=== PATIENT | female | born 1935 | race Caucasian/White ===

== ENCOUNTER 2019-08-03 11:02 | Inpatient (IN) ==
[2019-08-03 11:21] LABS: ABG Base Excess -0.7 mmol/L (-2.4-2.3); ABG HCO3 23.5 mmhg (22.0-26.0); ABG Oxygen Saturation 90 % (90-100); ABG PCO2 35.9 mmhg (35.0-45.0); ABG PH 7.43 mmol/L (7.35-7.45); ABG PO2 59.7 mmhg (80-100); ABG TCO2 24.6 mmhg (23-27)
[2019-08-03 11:22] LABS: Allen's Test ACCEPTABLE; Oxygen 21 %
[2019-08-03 11:28] LABS: Microscopic, Urine URINE MICROSCOPIC (MICROSCOPIC)
[2019-08-03 11:31] LABS: Basophils # 0.1 K/mm3 (0-0.2); Basophils % 0.3 % (0.1-2.0); Eosinophils # 0.1 K/mm3 (0.0-0.4); Eosinophils % 0.4 % (0.1-12.0); Hematocrit 30.7 % (37.0-47.0); Hemoglobin 9.7 g/dL (12.2-16.2); Lymphocytes # 2.1 K/mm3 (0.7-4.5); Lymphocytes % 11.5 % (10-50); Mean Corpuscular HGB Conc 31.6 g/dL (31.8-35.4); Mean Corpuscular Volume 80.4 fl (81-99); Mean Platelet Volume 7.9 fl (7.4-10.4); Monocytes # 0.9 K/mm3 (0.1-1.0); Monocytes % 4.9 % (1.7-9.3); Neutrophils # 14.8 K/mm3 (1.8-7.8); Neutrophils % 82.9 % (37.0-80.0); Platelet Count 447 K/mm3 (142-424); Red Blood Count 3.82 M/mm3 (4.20-5.40); Red Cell Distribution Width 14.9 % (11.5-17.5); White Blood Count 17.8 K/mm3 (4.8-10.8)
[2019-08-03 11:31] LABS: Appearance,Urine TURBID (Clear); Bilirubin,Urine Negative (Negative); Blood, Urine 2+ (Negative); Color,Urine YELLOW (Yellow); Glucose,Urine (UA) Negative (Negative); Ketones,Urine Negative (Negative); Leukocyte Esterase,Urine 3+ (Negative); PH,Urine 5.5 (5.0-8.5); Protein,Urine 3+ (Negative); Specific Gravity, Urine >= 1.030 (1.005-1.030); Urobilinogen,Urine 0.2 EU/dl (0.2)
[2019-08-03 11:42] LABS: Anisocytosis 1+; Lymphocytes % 14 % (10-50); Monocytes % 2 % (2-9); Neutrophils % 73 % (42-76); Total Cells Counted 100
[2019-08-03 11:43] LABS: Hypochromasia 1+
[2019-08-03 11:47] LABS: Albumin Level 2.5 gm/dL (3.4-5.0); Albumin/Globulin Ratio 0.4 (1.1-1.8); Anion Gap 13.5 mEq/L (5-15); Bilirubin,Total 0.5 mg/dL (0.2-1.0); Calcium 8.6 mg/dL (8.5-10.1); Globulin 5.9 gm/dl (1.3-3.2); Total Protein,Serum 8.4 gm/dL (6.4-8.2)
[2019-08-03 11:49] LABS: WBC,Urine TNTC #/hpf (0-3)
[2019-08-03 11:50] LABS: Amorphous Sediment,Urine 4+ /lpf; Bacteria,Urine 4+ /lpf
--- NOTE | 2019-08-03 12:15 | Emergency Department Note ---
ED Disposition Clinical Impression: Acute lower UTI (urinary tract infection), Healthcare associated bacterial pneumonia, Acute kidney injury (nontraumatic) Bilateral pneumonia Qualifiers: Pneumonia type: due to unspecified organism Lung location: unspecified part of lung Qualified Code(s): J18.9 - Pneumonia, unspecified organism Sepsis Qualifiers: Sepsis type: sepsis due to unspecified organism Sepsis acute organ dysfunction status: unspecified Qualified Code(s): A41.9 - Sepsis, unspecified organism Disposition: Admitted as Observation Condition on Discharge: Fair Time of Disposition: 13:55 - Critical Care Critical Care Time: Yes Attestation: On 08/03/19, the high probability of a clinically significant, sudden or life threatening deterioration of the following system(s) required my full and direct attention, intervention and personal management. The time I documented below is in addition to time spent performing reported procedures but includes the following listed in this critical care notation. Total Critical Care Time: 30 Vital system(s) involved:: Metabolic Failure, Respiratory Failure, Shock (Septic) My critical care processes included: Assessment & monitoring of V/S, Initial and Re-exams, Data Review/Interpretation, Coordinating Care, Medication Orders and management, Documentation Medical Decision Making - Jason Inquiry Pt receiving controlled substance: No Vital Signs: 08/03/19 11:03 08/03/19 12:49 08/03/19 12:56 Temperature 103.1 F H 101.3 F H Temperature Source Oral Oral Pulse Rate Pulse Rate [Right Radial] 120 H 104 H Respiratory Rate 28 H Blood Pressure Blood Pressure [Right Arm] 126/67 113/57 L Blood Pressure Mean [Right Arm] 86 75 02 Sat by Pulse Oximetry 77 L 95 Oxygen Delivery Method Room Air 08/03/19 14:09 Temperature 99.9 F H Temperature Source Oral Pulse Rate 100 H Pulse Rate [Right Radial] Respiratory Rate 18 Blood Pressure 108/45 L Blood Pressure [Right Arm] Blood Pressure Mean [Right Arm] 02 Sat by Pulse Oximetry Oxygen Delivery Method Nasal Cannula - Lab Data Lab results reviewed: Yes: I reviewed the patient's lab results. Lab Results 08/03/19 11:11: Specimen Source Right brachial, O2 % 21, ABG pH 7.43, ABG pCO2 35.9, ABG pO2 59.7 L, ABG HCO3 23.5, ABG Total CO2 24.6, ABG O2 Saturation 90, ABG Base Excess -0.7, [place] Test Acceptable 08/03/19 11:17: WBC 17.8 H, RBC 3.82 L, Hgb 9.7 L, Hct 30.7 L, MCV 80.4 L, MCH 25.4 L, MCHC 31.6 L, RDW 14.9, Plt Count 447 H, MPV 7.9, Neut % (Auto) 82.9 H, Lymph % (Auto) 11.5, [place] % (Auto) 4.9, Eos % (Auto) 0.4, Baso % (Auto) 0.3, Neut # (Auto) 14.8 H, Lymph # (Auto) 2.1, [place] # (Auto) 0.9, Eos # (Auto) 0.1, Baso # (Auto) 0.1, Total Counted 100, Neutrophils % (Manual) 73, Band Neutrophils % 5.0, Lymphocytes % (Manual) 14, Monocytes % (Manual) 2, Metamyelocytes % 6.0 H, Platelet Estimate Moderate increase, Hypochromasia 1+, Poikilocytosis 1+, Anisocytosis 1+, Microcytosis 1+ 08/03/19 11:17: Sodium 123 L, Potassium 5.5 H, Chloride 88 L, Carbon Dioxide 27, Anion Gap 13.5, BUN 35 H, Creatinine 1.68 H, Estimated Creat Clear 33, Estimated GFR 29 L, Est GFR ( Amer) 35 L, Glucose 188 H, Calcium 8.6, Total Bilirubin 0.5, AST 18, ALT 14, Alkaline Phosphatase 109, Troponin I 0.04, Total Protein 8.4 H, Albumin 2.5 L, Globulin 5.9 H, Albumin/Globulin Ratio 0.4 L 08/03/19 11:17: Lactate 1.8 08/03/19 11:17: Influenza Type A Ag Negative, Influenza Type B Ag Negative 08/03/19 11:23: Urine Color Yellow, Urine Appearance Turbid, Urine pH 5.5, Ur Specific [place] >= 1.030, Urine Protein 3+, Urine Glucose (UA) Negative, Urine Ketones Negative, Urine Blood 2+, Urine Nitrate Positive, Urine Bilirubin Negative, Urine Urobilinogen 0.2, Ur Leukocyte Esterase 3+ A, Urine RBC 3-5, Urine WBC Tntc, Ur Squamous Epith Cells 10-20, Amorphous Sediment 4+, Urine Bacteria 4+ 08/03/19 14:10: B-Natriuretic Peptide 1180 H 08/03/19 14:10: Magnesium 1.3 L Result diagrams: 08/03/19 11:17 08/03/19 11:17 Orders (Tests/Meds): ED MEDICATIONS Generic Name Dose Route Start Last Admin Trade Name Freq PRN Reason Stop Dose Admin Acetaminophen 650 mg 08/03/19 13:51 Acetaminophen 325mg Tab PO 09/02/19 13:50 Q4HP PRN As Needed for Fever or Pain Atorvastatin Calcium 20 mg 08/03/19 13:51 08/03/19 15:49 Lipitor 20mg Tablet PO 09/02/19 13:50 20 mg DAILY EVARISTO Administration Enoxaparin Sodium 40 mg 08/03/19 13:51 08/03/19 15:48 Lovenox 40mg/0.4ml Syringe SQ 09/02/19 13:50 40 mg DAILY EVARISTO Administration Furosemide 80 mg 08/04/19 09:00 Lasix 80mg Tablet PO 09/03/19 08:59 DAILY EVARISTO Piperacillin Sod/Tazobactam 50 mls @ 100 mls/hr 08/03/19 15:30 08/03/19 20:51 Sod 3.375 gm/ Sodium Chloride IV 08/17/19 15:29 100 mls/hr Q6H EVARISTO Administration Protocol Levofloxacin/Dextrose 750 mg in 150 mls @ 100 mls/hr 08/05/19 14:00 Levofloxacin 750mg/150ml Premix IV 08/19/19 13:59 Q48H EVARISTO Protocol Sodium Chloride 1,000 mls @ 100 mls/hr 08/03/19 13:51 08/03/19 15:48 Sod Chlor 0.9% 1000ml Bag IV 09/02/19 13:50 100 mls/hr .Q10H EVARISTO Administration Ibuprofen 600 mg 08/03/19 14:09 Motrin 600mg Tablet PO 09/02/19 14:08 Q6HP PRN Mild Pain Levothyroxine Sodium 50 mcg 08/03/19 13:51 08/03/19 15:49 Synthroid 50mcg (0.05mg) Tablet PO 09/02/19 13:50 50 mcg DAILY EVARISTO Administration Ondansetron HCl 4 mg 08/03/19 13:51 Zofran 4mg/2ml Vial IV 09/02/19 13:50 Q8HP PRN Nausea Pregabalin 100 mg 08/04/19 09:00 Lyrica 100mg Capsule PO 09/03/19 08:59 DAILY EVARISTO Sodium Chloride 3 ml 08/03/19 13:51 08/03/19 15:42 Sodium Chloride 3% 15ml Neb IH 09/02/19 13:04 3 ml ONCE PRN Administration [employer] Sodium Chloride 10 ml 08/03/19 13:51 Saline Flush 10ml Syringe IV 09/02/19 13:50 NEEDED PRN Maintain IV Site Discontinued Medications Generic Name Dose Route Start Last Admin Trade Name Freq PRN Reason Stop Dose Admin Acetaminophen 1,000 mg 08/03/19 11:09 08/03/19 11:28 Tylenol 500mg Tablet PO 08/03/19 11:10 Not Given ONCE ONE Acetaminophen 650 mg 08/03/19 11:28 08/03/19 11:29 Acetaminophen 650mg Suppository RC 08/03/19 11:29 650 mg ONCE ONE Administration Furosemide 40 mg 08/03/19 13:51 08/03/19 15:49 Lasix 40mg/4ml Vial IV 08/03/19 13:52 40 mg ONCE ONE Administration Sodium Chloride 1,000 mls @ 999 mls/hr 08/03/19 11:30 08/03/19 11:30 Sod Chlor 0.9% 1000ml Bag IV 08/03/19 12:30 999 mls/hr .Q1H1M EVARISTO Administration Ceftriaxone Sodium 1 gm/ 50 mls @ 100 mls/hr 08/03/19 12:12 08/03/19 12:49 Sodium Chloride IV 08/03/19 12:41 100 mls/hr ONCE STA Administration Protocol Levofloxacin/Dextrose 750 mg in 150 mls @ 100 mls/hr 08/03/19 13:45 08/03/19 13:45 Levofloxacin 750mg/150ml Premix IV 08/17/19 13:44 100 mls/hr Q24H EVARISTO Administration Protocol Piperacillin Sod/Tazobactam 50 mls @ 100 mls/hr 08/03/19 13:45 08/03/19 17:29 Sod 3.375 gm/ Sodium Chloride IV 08/17/19 13:44 Not Given Q8H EVARISTO Protocol Piperacillin Sod/Tazobactam 50 mls @ 100 mls/hr 08/03/19 13:45 08/03/19 17:28 Sod 3.375 gm/ Sodium Chloride IV 08/03/19 14:14 Not Given ONCE ONE Protocol Ibuprofen 800 mg 08/03/19 12:56 08/03/19 12:57 Motrin 200mg/10ml Suspension PO 08/03/19 12:57 800 mg ONCE ONE Administration Sodium Chloride 3 ml 08/03/19 13:05 Sodium Chloride 3% 15ml Neb IH 09/02/19 13:04 ONCE PRN [employer] ORDERS Category Date Time Status Basic Metabolic Panel AMLAB Lab 08/04/19 06:00 Ordered Complete Blood Count Auto Diff AMLAB Lab 08/04/19 06:00 Ordered Troponin I Q6H Lab 08/03/19 22:45 Ordered Blood Culture Stat Micro 08/03/19 11:23 Received Sputum Culture & Gram Stain Stat Micro 08/03/19 16:00 Results Urine Culture Stat Micro 08/03/19 11:23 Received - ECG Data Tracing #[address]-T changes. Resp/SOB HPI - General Chief Complaint: Shortness of Breath/Dyspnea Stated Complaint: Shortness of Breath Time Seen by Provider: 08/03/19 11:10 Mode of Arrival: EMS Limitations: Physical Limitations Description of Symptoms (Recalled from ER Triage Doc. by RN): pt presents to ed with c/o fever, low o2 at the care home reported in the "60s," and shortness of breath - History of Present Illness 84-year-old female was brought in from the care home by the EMS for having s hortness of breath and not feeling well. Patient states she has not been feeling well for the last 2 to 3 days. Patient seems to be having shortness of breath. Her oxygen saturation is low. It was around 60% at the care home. Patient feels warm as if she is having fever. Denies having chest pain. Denies having abdominal pain. Denies having headache. No history of nausea or vomiting. MD Complaint: shortness of breath, cough, anxiety Onset (ago): day(s) (2-3) Context: recent illness Severity: moderate Consistency/Duration: constant Relieving factors: nothing Exacerbating factors: nothing - Related Data Home Medications Medication Instructions Recorded Confirmed Acetaminophen [Acetaminophen 325mg 650 mg PO Q8HP PRN 08/03/19 08/03/19 tab] Alendronate Sodium [Fosamax 70mg 70 mg PO WEEKLY 08/03/19 08/03/19 Tablet] Atorvastatin Calcium [Lipitor 20mg 20 mg PO DAILY 08/03/19 08/03/19 Tablet] Clopidogrel Bisulfate [Plavix 75mg 75 mg PO DAILY 08/03/19 08/03/19 Tab] Erythromycin Base [Erythromycin 0 gm OP HS 08/03/19 08/03/19 1gm opth ointment] Erythromycin Base [Erythromycin 1 applicatio TP HS 08/03/19 08/03/19 3.5gm opth oinment] Furosemide [Lasix 80mg tab] 80 mg PO DAILY 08/03/19 08/03/19 Levothyroxine Sodium [Synthroid 50 mcg PO DAILY 08/03/19 08/03/19 50mcg (0.05mg) tab] Multivitamin [Multi-Day Vitamins] 1 each PO DAILY 08/03/19 08/03/19 Multivitamin [Multivitamins] 1 each PO DAILY 08/03/19 08/03/19 Polymyxin B Sulf/Trimethoprim 0 ml OP TID 08/03/19 08/03/19 [Polytrim Ophth Soln 10mL Bottle] Polymyxin B Sulf/Trimethoprim 1 drp EYE-BOTH TID 08/03/19 08/03/19 [Polytrim Ophth Soln 10mL Bottle] Pregabalin 100 mg PO DAILY 08/03/19 08/03/19 Triamcinolone Acetonide [Kenalog 0 gm TOPICAL BID 08/03/19 08/03/19 0.1% cream 30gm tube] Triamcinolone Acetonide [Kenalog 1 applicatio TP BID 08/03/19 08/03/19 0.1% cream 30gm tube] Allergies Allergy/AdvReac Type Severity Reaction Status Date / Time No Known Allergies Allergy Verified 08/03/19 11:08 [facility] History - Hepatitis A Screen Drug use history?: No High risk sexual behaviors?: No History of sexually transmitted infection?: No Currently employed?: No Childcare worker?: No Do you have indoor plumbing?: Yes Do you have electricity?: Yes Attestation statement:: This patient has been screened for Hepatitis A risk factors. I have reviewed the patient's past medical history: Yes Medical History: Denies:: Diabetes Mellitus Type 1, Diabetes Mellitus Type 2 - Social History Alcohol Intake: never Occupational Status: retired ROS Obtained: Yes All systems reviewed & no additional complaints Physical Exam - General General appearance: alert, other (Looks weak and tired. She is tachypneic and breathing at about 28 to 30/min. She feels very warm to touch and has a temperature of 103 degrees.) - Head Head exam: atraumatic, normocephalic, normal inspection - Eye Eye exam: Present: normal appearance, PERRL, EOMI - ENT ENT exam: Present: normal exam, normal oropharynx, mucous membranes moist, normal external ear exam - Neck Neck exam: Present: normal inspection, full ROM, trachea midline - Chest Chest inspection: Present: normal inspection, symmetric chest wall rise. Absent: tenderness - Respiratory Respiratory exam: Present: other (Tachypnea, bilateral coarse breath sounds. I ncreased shortness of breath. Bilateral coarse wheezing. Coarse rhonchi.) - Cardiovascular Cardiovascular exam: Present: tachycardia - Abdominal Exam Abdominal exam: Present: soft, normal bowel sounds. Absent: distention, tenderness, guarding - Extremities Exam Extremities exam: Present: normal inspection, full ROM. Absent: tenderness - Back Exam Back exam: Present: normal inspection, full ROM - Neurological Exam Neurological exam: Present: alert, CN II-XII intact - Psychiatric Psychiatric exam: Present: normal affect, normal mood - Skin Skin exam: Present: warm, dry, intact, normal color
--- NOTE | 2019-08-03 14:14 | Pharmacy Consult Notes ---
[facility] Pharmacy VTE Monitoring - Patient Demographics Admission date: 08/02/19 Report Date: 08/03/19 Time: 14:14 Allergies/Adverse Reactions: Patient Allergies No Known Allergies Allergy (Verified 08/03/19 11:08) Height: 1.68 m Weight: 84.368 kg - VTE Risk Labs: VTE Related Lab Results Hgb 9.7 g/dL (12.2-16.2) L 08/03/19 11:17 Hct 30.7 % (37.0-47.0) L 08/03/19 11:17 Plt Count 447 K/mm3 (142-424) H 08/03/19 11:17 BUN 35 mg/dL (7-18) H 08/03/19 11:17 Creatinine 1.68 mg/dL (0.55-1.02) H 08/03/19 11:17 Estimated Creat Clear 33 mL/min (50-200) 08/03/19 11:17 - Prophylaxis VTE Prophylaxis Ordered?: Yes Types of VTE Prophylaxis: TEDS Knee High, Pharmacological Location of Applied Device: Bilateral Lower Extremeties Pharmacologic Type: Enoxaparin - VTE Diagnosis Confirmed Treatment or plan recommended: Continue Current Treatment
--- NOTE | 2019-08-03 20:06 | History & Physical Report ---
*Admission Date: 08/02/19 *Chief complaint: altered mental status *History of present illness: this pt was sent from [facility] with altered mental status - she was seen in the ed- resents to ed with c/o fever, low o2 at the skilled nursing reported in the "60s," and shortness of breath 84-year-old female was brought in from the skilled nursing by the EMS for having shortness of breath and not feeling well. Patient states she has not been feeling well for the last 2 to 3 days. Patient seems to be having shortness of breath. Her oxygen saturation is low. It was around 60% at the skilled nursing. Patient feels warm as if she is having fever. Denies having chest pain. Denies having abdominal pain. Denies having headache. No history of nausea or vomiting. MD Complaint: shortness of breath, cough, anxiety pt was admitted with ivf and abx and pul treatment [facility] History I have reviewed the patient's past medical history: Yes Medical History: Denies:: Cancer, Diabetes Mellitus Type 1, Diabetes Mellitus Type 2, Internal Pacemaker, MRSA *Have you ever received a pneumonia vaccine?: Yes *Have you received a flu vaccine this season?: Yes Other Surgeries: No: Pacemaker Amputation: No - *Social History Educational Level: Completed Grade School Smoking Status: Never smoker Alcohol Intake: never *Occupational Status:: retired Housing: skilled nursing *Travel in the last 8 weeks: None Family Hx:: Heart Attack Review of Systems - Review of Systems Review of systems:: pertinent systems reviewed and negative unless documented below - Constitutional Reports lack of energy - Eyes Denies change in vision - ENT Denies sore throat - *Cardiovascular Reports shortness of breath, Denies chest pain with activity - *Respiratory Reports cough, Denies coughing up blood - *Gastrointestinal Denies abdominal pain - *Genitourinary Denies blood in urine - *Musculoskeletal Denies joint pain, Denies back pain - Integumentary/Breasts Denies rash - *Neurologic Denies abnormal speech, Denies seizure-like activity, Denies localized weakness - Psychiatric Reports confusion Meds Home Medications Medication Instructions Recorded Confirmed Type Acetaminophen [Acetaminophen 325mg 650 mg PO Q8HP PRN 08/03/19 08/03/19 History tab] Alendronate Sodium [Fosamax 70mg 70 mg PO WEEKLY 08/03/19 08/03/19 History Tablet] Atorvastatin Calcium [Lipitor 20mg 20 mg PO DAILY 08/03/19 08/03/19 History Tablet] Clopidogrel Bisulfate [Plavix 75mg 75 mg PO DAILY 08/03/19 08/03/19 History Tab] Erythromycin Base [Erythromycin 0 gm OP HS 08/03/19 08/03/19 History 1gm opth ointment] Erythromycin Base [Erythromycin 1 applicatio TP HS 08/03/19 08/03/19 History 3.5gm opth oinment] Furosemide [Lasix 80mg tab] 80 mg PO DAILY 08/03/19 08/03/19 History Levothyroxine Sodium [Synthroid 50 mcg PO DAILY 08/03/19 08/03/19 History 50mcg (0.05mg) tab] Multivitamin [Multi-Day Vitamins] 1 each PO DAILY 08/03/19 08/03/19 History Multivitamin [Multivitamins] 1 each PO DAILY 08/03/19 08/03/19 History Polymyxin B Sulf/Trimethoprim 0 ml OP TID 08/03/19 08/03/19 History [Polytrim Ophth Soln 10mL Bottle] Polymyxin B Sulf/Trimethoprim 1 drp EYE-BOTH TID 08/03/19 08/03/19 History [Polytrim Ophth Soln 10mL Bottle] Pregabalin 100 mg PO DAILY 08/03/19 08/03/19 History Triamcinolone Acetonide [Kenalog 0 gm TOPICAL BID 08/03/19 08/03/19 History 0.1% cream 30gm tube] Triamcinolone Acetonide [Kenalog 1 applicatio TP BID 08/03/19 08/03/19 History 0.1% cream 30gm tube] Allergies Allergy/AdvReac Type Severity Reaction Status Date / Time No Known Allergies Allergy Verified 08/03/19 11:08 Exam Vital signs and Labs for Last 24 Hours: Temp Pulse Resp BP Pulse Ox 99.4 F 116 H 24 98/54 L 94 L 08/03/19 20:00 08/03/19 20:00 08/03/19 20:00 08/03/19 20:00 08/03/19 20:00 Laboratory Results - last 24 hr 08/03/19 11:11: Specimen Source Right brachial, O2 % 21, ABG pH 7.43, ABG pCO2 35.9, ABG pO2 59.7 L, ABG HCO3 23.5, ABG Total CO2 24.6, ABG O2 Saturation 90, ABG Base Excess -0.7, [place] Test Acceptable 08/03/19 11:17: WBC 17.8 H, RBC 3.82 L, Hgb 9.7 L, Hct 30.7 L, MCV 80.4 L, MCH 25.4 L, MCHC 31.6 L, RDW 14.9, Plt Count 447 H, MPV 7.9, Neut % (Auto) 82.9 H, Lymph % (Auto) 11.5, [place] % (Auto) 4.9, Eos % (Auto) 0.4, Baso % (Auto) 0.3, Neut # (Auto) 14.8 H, Lymph # (Auto) 2.1, [place] # (Auto) 0.9, Eos # (Auto) 0.1, Baso # (Auto) 0.1, Total Counted 100, Neutrophils % (Manual) 73, Band Neutrophils % 5.0, Lymphocytes % (Manual) 14, Monocytes % (Manual) 2, Met amyelocytes % 6.0 H, Platelet Estimate Moderate increase, Hypochromasia 1+, Poikilocytosis 1+, Anisocytosis 1+, Microcytosis 1+ 08/03/19 11:17: Sodium 123 L, Potassium 5.5 H, Chloride 88 L, Carbon Dioxide 27, Anion Gap 13.5, BUN 35 H, Creatinine 1.68 H, Estimated Creat Clear 33, Estimated GFR 29 L, Est GFR ( Amer) 35 L, Glucose 188 H, Calcium 8.6, Total Bilirubin 0.5, AST 18, ALT 14, Alkaline Phosphatase 109, Troponin I 0.04, Total Protein 8.4 H, Albumin 2.5 L, Globulin 5.9 H, Albumin/Globulin Ratio 0.4 L 08/03/19 11:17: Lactate 1.8 08/03/19 11:17: Influenza Type A Ag Negative, Influenza Type B Ag Negative 08/03/19 11:23: Urine Color Yellow, Urine Appearance Turbid, Urine pH 5.5, Ur Specific [place] >= 1.030, Urine Protein 3+, Urine Glucose (UA) Negative, Urine Ketones Negative, Urine Blood 2+, Urine Nitrate Positive, Urine Bilirubin Negative, Urine Urobilinogen 0.2, Ur Leukocyte Esterase 3+ A, Urine RBC 3-5, Urine WBC Tntc, Ur Squamous Epith Cells 10-20, Amorphous Sediment 4+, Urine Bacteria 4+ 08/03/19 14:10: B-Natriuretic Peptide 1180 H 08/03/19 14:10: Magnesium 1.3 L 08/03/19 17:13: Troponin I 0.06 I & O for Last 24 hours: Intake & Output 08/01/19 08/02/19 08/03/19 08/04/19 11:59 11:59 11:59 11:59 Intake Total 1580 / 1580 Balance 1580 / 1580 Weight 186 lb 177 lb Microbiology Reports for the Last 24 Hours: Microbiology 08/03/19 16:00 Sputum - Expectorated Sputum Gram Stain - Final - Constitutional no acute distress - *Routine HEENT Exam Head: Present: normocephalic Eye: Present: EOMI, PERRL ENT: Present: mucous membranes dry - *Routine Neck Exam Absent: JVD - *Routine Respiratory Exam Present: prolonged expiratory phase, rhonchi. Absent: respiratory distress - *Routine Cardiovascular Exam Present: RRR, murmur, S4 - *Routine Abdominal Exam Present: soft - *Routine Extremities Exam Present: edema, amputation. Absent: tenderness - *Routine Skin Exam Present: intact - *Routine Neurological Exam Present: CN II-XII intact, altered mental status. Absent: motor deficit - Routine Psychiatric Exam Present: unable to assess Assessment and Plan (1) Sepsis Current visit: Yes Status: Acute Qualifiers: Sepsis type: sepsis due to unspecified organism Sepsis acute organ dysfunction status: unspecified Qualified Code(s): A41.9 - Sepsis, unspecified organism Category: Medical Code(s): A41.9 - Sepsis, unspecified organism (2) Healthcare associated bacterial pneumonia Current visit: Yes Status: Acute Category: Medical Code(s): J15.9 - Unspecified bacterial pneumonia (3) Acute kidney injury (nontraumatic) Current visit: Yes Status: Acute Category: Medical Code(s): N17.9 - Acute kidney failure, unspecified - Assessment and plan all Dx Assessment and Plan for all problems:: uti
[2019-08-04 06:14] LABS: Basophils # 0.1 K/mm3 (0-0.2); Basophils % 0.4 % (0.1-2.0); Eosinophils # 0.3 K/mm3 (0.0-0.4); Eosinophils % 1.6 % (0.1-12.0); Lymphocytes # 1.6 K/mm3 (0.7-4.5); Mean Corpuscular HGB Conc 30.2 g/dL (31.8-35.4); Mean Platelet Volume 8.4 fl (7.4-10.4); Monocytes # 0.8 K/mm3 (0.1-1.0); Monocytes % 4.9 % (1.7-9.3); Neutrophils # 13.6 K/mm3 (1.8-7.8); Neutrophils % 83.1 % (37.0-80.0); Platelet Count 343 K/mm3 (142-424); Red Blood Count 3.16 M/mm3 (4.20-5.40); Red Cell Distribution Width 14.9 % (11.5-17.5); White Blood Count 16.4 K/mm3 (4.8-10.8)
[2019-08-04 06:15] LABS: Hematocrit 26.2 % (37.0-47.0); Hemoglobin 7.9 g/dL (12.2-16.2)
[2019-08-04 06:24] LABS: Anion Gap 13.9 mEq/L (5-15)
[2019-08-04 06:34] LABS: Calcium 7.7 mg/dL (8.5-10.1)
[2019-08-04 08:13] LABS: Lymphocytes % 11 % (10-50); Monocytes % 5 % (2-9); Neutrophils % 84 % (42-76); Total Cells Counted 100
[2019-08-04 08:14] LABS: Hypochromasia 1+
--- NOTE | 2019-08-04 09:31 | Progress Note ---
Internal Medicine - PN: Subj *Date: 08/04/19 *Time: 09:07 Interval history: pt states she feels better today. Exam Vital signs and Labs for Last 24 Hours: Temp Pulse Resp BP Pulse Ox 97.9 F 88 18 115/56 L 92 L 08/04/19 08:00 08/04/19 08:00 08/04/19 08:00 08/04/19 08:00 08/04/19 08:00 Laboratory Results - last 24 hr 08/03/19 11:11: Specimen Source Right brachial, O2 % 21, ABG pH 7.43, ABG pCO2 35.9, ABG pO2 59.7 L, ABG HCO3 23.5, ABG Total CO2 24.6, ABG O2 Saturation 90, ABG Base Excess -0.7, [place] Test Acceptable 08/03/19 11:17: WBC 17.8 H, RBC 3.82 L, Hgb 9.7 L, Hct 30.7 L, MCV 80.4 L, MCH 25.4 L, MCHC 31.6 L, RDW 14.9, Plt Count 447 H, MPV 7.9, Neut % (Auto) 82.9 H, Lymph % (Auto) 11.5, [place] % (Auto) 4.9, Eos % (Auto) 0.4, Baso % (Auto) 0.3, Neut # (Auto) 14.8 H, Lymph # (Auto) 2.1, [place] # (Auto) 0.9, Eos # (Auto) 0.1, Baso # (Auto) 0.1, Total Counted 100, Neutrophils % (Manual) 73, Band Neutrophils % 5.0, Lymphocytes % (Manual) 14, Monocytes % (Manual) 2, Metamyelocytes % 6.0 H, Platelet Estimate Moderate increase, Hypochromasia 1+, Poikilocytosis 1+, Anisocytosis 1+, Microcytosis 1+ 08/03/19 11:17: Sodium 123 L, Potassium 5.5 H, Chloride 88 L, Carbon Dioxide 27, Anion Gap 13.5, BUN 35 H, Creatinine 1.68 H, Estimated Creat Clear 33, Estimated GFR 29 L, Est GFR ( Amer) 35 L, Glucose 188 H, Calcium 8.6, Total Bilirubin 0.5, AST 18, ALT 14, Alkaline Phosphatase 109, Troponin I 0.04, Total Protein 8.4 H, Albumin 2.5 L, Globulin 5.9 H, Albumin/Globulin Ratio 0.4 L 08/03/19 11:17: Lactate 1.8 08/03/19 11:17: Influenza Type A Ag Negative, Influenza Type B Ag Negative 08/03/19 11:23: Urine Color Yellow, Urine Appearance Turbid, Urine pH 5.5, Ur Specific [place] >= 1.030, Urine Protein 3+, Urine Glucose (UA) Negative, Urine Ketones Negative, Urine Blood 2+, Urine Nitrate Positive, Urine Bilirubin Negative, Urine Urobilinogen 0.2, Ur Leukocyte Esterase 3+ A, Urine RBC 3-5, Urine WBC Tntc, Ur Squamous Epith Cells 10-20, Amorphous Sediment 4+, Urine Bacteria 4+ 08/03/19 14:10: B-Natriuretic Peptide 1180 H 08/03/19 14:10: Magnesium 1.3 L 08/03/19 17:13: Troponin I 0.06 08/03/19 20:50: POC Glucose 199 H 08/03/19 22:45: Troponin I 0.03 08/04/19 05:42: POC Glucose 119 H 08/04/19 05:55: WBC 16.4 H, RBC 3.16 L, Hgb 7.9 L*, Hct 26.2 L, MCV 83.0, MCH 25.1 L, MCHC 30.2 L, RDW 14.9, Plt Count 343, MPV 8.4, Neut % (Auto) 83.1 H, Lymph % (Auto) 10.0, [place] % (Auto) 4.9, Eos % (Auto) 1.6, Baso % (Auto) 0.4, Neut # (Auto) 13.6 H, Lymph # (Auto) 1.6, [place] # (Auto) 0.8, Eos # (Auto) 0.3, Baso # (Auto) 0.1, Total Counted 100, Neutrophils % (Manual) 84 H, Lymphocytes % (Manual) 11, Monocytes % (Manual) 5, Platelet Estimate Moderate decrease, Hypochromasia 1+ 08/04/19 05:55: Sodium 129 L, Potassium 4.9, Chloride 95 L, Carbon Dioxide 25, Anion Gap 13.9, BUN 45 H D, Creatinine 2.35 H D, Estimated Creat Clear 22, Estimated GFR 20 L, Est GFR ( Amer) 24 L D, Glucose 103 D, Calcium 7.7 L D I & O for Last 24 hours: Intake & Output 08/01/19 08/02/19 08/03/19 08/04/19 11:59 11:59 11:59 11:59 Intake Total 3084 / 3084 Output Total 400 / 400 Balance 2684 / 2684 Weight 186 lb 179 lb 4 oz Microbiology Reports for the Last 24 Hours: Microbiology 08/03/19 11:23 Urine,Catheterized Urine Culture - Preliminary Gram Negative Rods 08/03/19 16:00 Sputum - Expectorated Sputum Gram Stain - Final - Constitutional no acute distress, chronically ill appearing - *Routine HEENT Exam Head: Present: normocephalic Eye: Present: PERRL ENT: Present: mucous membranes moist - *Routine Neck Exam Present: supple. Absent: lymphadenopathy - *Routine Respiratory Exam Present: decreased breath sounds, rhonchi - *Routine Cardiovascular Exam Present: RRR - *Routine Abdominal Exam Present: soft, normoactive bowel sounds. Absent: tenderness - *Routine Extremities Exam Present: full ROM. Absent: cyanosis, clubbing, edema - *Routine Skin Exam Present: warm, wounds. Absent: rash Comments: rt heel boggy first three toes s/p amputated 4th toe red with scab present - *Routine Neurological Exam Present: alert, oriented X3 - Routine Psychiatric Exam Present: normal affect Assessment and Plan (1) Acute kidney injury (nontraumatic) Current visit: Yes Status: Acute Category: Medical Code(s): N17.9 - Acute kidney failure, unspecified (2) Acute lower UTI (urinary tract infection) Current visit: Yes Status: Acute Category: Medical Code(s): N39.0 - Urinary tract infection, site not specified waiting on final culture (3) Bilateral pneumonia Current visit: Yes Status: Acute Qualifiers: Pneumonia type: due to unspecified organism Lung location: unspecified part of lung Qualified Code(s): J18.9 - Pneumonia, unspecified organism Category: Medical Code(s): J18.9 - Pneumonia, unspecified organism (4) Healthcare associated bacterial pneumonia Current visit: Yes Status: Acute Category: Medical Code(s): J15.9 - Unspecified bacterial pneumonia (5) Sepsis Current visit: Yes Status: Acute Qualifiers: Sepsis type: sepsis due to unspecified organism Sepsis acute organ dysfunction status: unspecified Qualified Code(s): A41.9 - Sepsis, unspecified organism Category: Medical Code(s): A41.9 - Sepsis, unspecified organism - Assessment and plan all Dx Assessment and Plan for all problems:: rounded with dr pierre all orders per ignacio wait culture results
--- NOTE | 2019-08-04 13:51 | Electrocardiograph Report ---
APPROVED REPORT Exam: Resting ECG HR:116 bpm ECG Measurements Heart Rate 116 AXES TN 146 P 68 QRSd 86 QRS -11 QT 308 T59 QTc 428 <Conclusion> Sinus tachycardia Left ventricular hypertrophy with repolarization abnormality Abnormal ECG Electronically signed by : Geovanny Jain, 08/04/2019 13:50:51
[2019-08-05 07:23] LABS: Basophils % 0.5 % (0.1-2.0); Eosinophils # 0.3 K/mm3 (0.0-0.4); Eosinophils % 3.5 % (0.1-12.0); Hematocrit 24.3 % (37.0-47.0); Lymphocytes # 1.3 K/mm3 (0.7-4.5); Mean Corpuscular HGB Conc 30.5 g/dL (31.8-35.4); Mean Corpuscular Volume 83.3 fl (81-99); Mean Platelet Volume 8.5 fl (7.4-10.4); Monocytes # 0.6 K/mm3 (0.1-1.0); Monocytes % 6.6 % (1.7-9.3); Neutrophils # 6.8 K/mm3 (1.8-7.8); Neutrophils % 75.4 % (37.0-80.0); Platelet Count 297 K/mm3 (142-424); Red Blood Count 2.91 M/mm3 (4.20-5.40); Red Cell Distribution Width 15.1 % (11.5-17.5)
[2019-08-05 07:34] LABS: Hemoglobin 7.4 g/dL (12.2-16.2)
[2019-08-05 07:36] LABS: Anion Gap 15.8 mEq/L (5-15); Calcium 7.2 mg/dL (8.5-10.1)
--- NOTE | 2019-08-05 09:08 | Progress Note ---
Internal Medicine - PN: Subj *Date: 08/05/19 *Time: 11:29 Interval history: 84 YOF sitting up in bed, reports feeling a little better. Urine Culture resulted and covered. Exam Vital signs and Labs for Last 24 Hours: Temp Pulse Resp BP Pulse Ox 98.3 F 90 18 127/43 L 97 08/05/19 07:43 08/05/19 07:43 08/05/19 07:43 08/05/19 07:43 08/05/19 07:43 Laboratory Results - last 24 hr 08/04/19 11:13: POC Glucose 111 H 08/05/19 06:50: WBC 9.0 D, RBC 2.91 L, Hgb 7.4 L*, Hct 24.3 L, MCV 83.3, MCH 25.4 L, MCHC 30.5 L, RDW 15.1, Plt Count 297, MPV 8.5, Neut % (Auto) 75.4, Lymph % (Auto) 14.0, [place] % (Auto) 6.6, Eos % (Auto) 3.5, Baso % (Auto) 0.5, Neut # (Auto) 6.8, Lymph # (Auto) 1.3, [place] # (Auto) 0.6, Eos # (Auto) 0.3, Baso # (Auto) 0.0 08/05/19 06:50: Sodium 125 L, Potassium 4.8, Chloride 92 L, Carbon Dioxide 22, Anion Gap 15.8 H, BUN 43 H, Creatinine 2.31 H, Estimated Creat Clear 23, Estimated GFR 20 L, Est GFR ( Amer) 24 L, Glucose 84, Calcium 7.2 L I & O for Last 24 hours: Intake & Output 08/02/19 08/03/19 08/04/19 08/05/19 23:59 23:59 23:59 23:59 Intake Total 1580 / 1580 2104 / 2104 240 / 240 Output Total 600 / 600 Balance 1580 / 1180 1504 / 1504 240 / 240 Weight 177 lb 178 lb 9.191 oz 178 lb 9.191 oz Microbiology Reports for the Last 24 Hours: Microbiology 08/03/19 11:23 Urine,Catheterized Urine Culture - Final Escherichia coli 08/03/19 16:00 Sputum - Expectorated Sputum Gram Stain - Final 08/03/19 16:00 Sputum - Expectorated Sputum Sputum Culture - Preliminary - Constitutional no acute distress - *Routine HEENT Exam Head: Present: normocephalic, atraumatic. Absent: tenderness of temporal artery Eye: Present: EOMI, PERRL. Absent: conjunctival icterus ENT: Present: mucous membranes dry. Absent: sinus tenderness - *Routine Neck Exam Present: full ROM. Absent: JVD, trachea midline - *Routine Respiratory Exam Present: decreased breath sounds. Absent: accessory muscle use - *Routine Cardiovascular Exam Present: RRR - *Routine Abdominal Exam Present: soft, normoactive bowel sounds. Absent: tenderness - *Routine Extremities Exam Present: pulses intact. Absent: calf tenderness - Routine Back/Spine/Pelvis Exam Back/Spine: Present: full ROM. Absent: CVA tenderness - *Routine Skin Exam Present: warm, wounds. Absent: erythema Comments: first three toes R Foot s/p amputated 4th toe red with scab present Stg II Pressure Ulcer L Buttock - *Routine Neurological Exam Present: alert Assessment and Plan (1) Sepsis Current visit: Yes Status: Acute Qualifiers: Sepsis type: sepsis due to unspecified organism Sepsis acute organ dysfunction status: unspecified Qualified Code(s): A41.9 - Sepsis, unspecified organism Category: Medical Code(s): A41.9 - Sepsis, unspecified organism (2) Healthcare associated bacterial pneumonia Current visit: Yes Status: Acute Category: Medical Code(s): J15.9 - Unspecified bacterial pneumonia (3) Acute kidney injury (nontraumatic) Current visit: Yes Status: Acute Category: Medical Code(s): N17.9 - Acute kidney failure, unspecified (4) SIRS (systemic inflammatory response syndrome) Current visit: Yes Status: Acute Category: Medical Code(s): R65.10 - Systemic inflammatory response syndrome (SIRS) of non-infectious origin without acute organ dysfunction (5) Stage II pressure ulcer of buttock Current visit: Yes Status: Acute Qualifiers: Laterality: left Qualified Code(s): L89.322 - Pressure ulcer of left buttock, stage 2 Category: Medical Code(s): L89.302 - Pressure ulcer of unspecified buttock, stage 2 (6) Diastolic heart failure Current visit: Yes Status: Acute Qualifiers: Heart failure chronicity: chronic Qualified Code(s): I50.32 - Chronic diastolic (congestive) heart failure Category: Medical Code(s): I50.30 - Unspecified diastolic (congestive) heart failure (7) Neuropathy Current visit: Yes Status: Acute Category: Medical Code(s): G62.9 - Polyneuropathy, unspecified (8) Amputation, traumatic, toes Current visit: Yes Status: Acute Qualifiers: Laterality: left Category: Medical Code(s): S98.139A - Complete traumatic amputation of one unspecified lesser toe, initial encounter (9) CKD (chronic kidney disease) Current visit: Yes Status: Acute Qualifiers: Chronic kidney disease stage: stage 4 (severe) Qualified Code(s): N18.4 - Chronic kidney disease, stage 4 (severe) Category: Medical Code(s): N18.9 - Chronic kidney disease, unspecified (10) Acute lower UTI (urinary tract infection) Current visit: Yes Status: Acute Category: Medical Code(s): N39.0 - Urinary tract infection, site not specified (11) E-coli UTI Current visit: Yes Status: Acute Category: Medical Code(s): N39.0 - Urinary tract infection, site not specified; B96.20 - Unspecified Escherichia coli [E. coli] as the cause of diseases classified elsewhere (12) Anemia, iron deficiency Current visit: Yes Status: Acute Category: Medical Code(s): D50.9 - Iron deficiency anemia, unspecified - Assessment and plan all Dx Assessment and Plan for all problems:: Rounded with Dr. Gooden, all orders per Dr. Gooden 1. We will transfuse 2 units of packed cells today 2. Urinu w/ E-Coli 3. Awaiting Sputum
[2019-08-06 00:32] LABS: Hematocrit 31.7 % (37.0-47.0)
[2019-08-06 00:35] LABS: Hemoglobin 10.2 g/dL (12.2-16.2)
--- NOTE | 2019-08-06 08:26 | Pharmacy Consult Notes ---
- Pharmacy Consult Date: 08/06/19 Time: 08:24 Referring provider: DR. MONTERO Reason for Consult:: VANCOMYCIN DOSING Allergies and ADEs:: Allergies Allergy/AdvReac Type Severity Reaction Status Date / Time No Known Allergies Allergy Verified 08/03/19 11:08 Home Medications:: Home Medications Medication Instructions Recorded Confirmed Type Acetaminophen [Acetaminophen 325mg 650 mg PO Q8HP PRN 08/03/19 08/03/19 History tab] Alendronate Sodium [Fosamax 70mg 70 mg PO WEEKLY 08/03/19 08/03/19 History Tablet] Atorvastatin Calcium [Lipitor 20mg 20 mg PO DAILY 08/03/19 08/03/19 History Tablet] Clopidogrel Bisulfate [Plavix 75mg 75 mg PO DAILY 08/03/19 08/03/19 History Tab] Erythromycin Base [Erythromycin 0 gm OP HS 08/03/19 08/03/19 History 1gm opth ointment] Erythromycin Base [Erythromycin 1 applicatio TP HS 08/03/19 08/03/19 History 3.5gm opth oinment] Furosemide [Lasix 80mg tab] 80 mg PO DAILY 08/03/19 08/03/19 History Levothyroxine Sodium [Synthroid 50 mcg PO DAILY 08/03/19 08/03/19 History 50mcg (0.05mg) tab] Multivitamin [Multi-Day Vitamins] 1 each PO DAILY 08/03/19 08/03/19 History Multivitamin [Multivitamins] 1 each PO DAILY 08/03/19 08/03/19 History Polymyxin B Sulf/Trimethoprim 0 ml OP TID 08/03/19 08/03/19 History [Polytrim Ophth Soln 10mL Bottle] Polymyxin B Sulf/Trimethoprim 1 drp EYE-BOTH TID 08/03/19 08/03/19 History [Polytrim Ophth Soln 10mL Bottle] Pregabalin 100 mg PO DAILY 08/03/19 08/03/19 History Triamcinolone Acetonide [Kenalog 0 gm TOPICAL BID 08/03/19 08/03/19 History 0.1% cream 30gm tube] Triamcinolone Acetonide [Kenalog 1 applicatio TP BID 02/02/20 02/02/20 History 0.1% cream 30gm tube] Height: 1.65 m Weight: 81 kg Laboratory Results:: Laboratory Results - last 24 hr 08/05/19 00:20: Hgb 10.2 L D, Hct 31.7 L 08/05/19 06:50: Hgb 7.4 L* D 08/05/19 09:25: Blood Type O Negative, Antibody Screen Negative, Crossmatch (AHG) See Detail 08/05/19 14:21: Blood Type Confirm O Negative 08/05/19 20:55: POC Glucose 143 H 08/06/19 00:20: Direct Antiglob Test Negative, Hemolysis Bld Bag Check No, Pre- Trans Blood Type O negative, Pre-Trans Vis Hemolysis No, Pre-Trans Antibody Scrn Negative, Post-Trans Blood Type O negative, Post-Tx Visible Hemolys No, Post- Trans Antibody Scrn Negative Medical History: Denies:: Cancer, Diabetes Mellitus Type 1, Diabetes Mellitus Type 2, Internal Pacemaker, MRSA Assessment and Plan (1) Sepsis Current visit: Yes Status: Acute Qualifiers: Sepsis type: sepsis due to unspecified organism Sepsis acute organ dysfunction status: unspecified Qualified Code(s): A41.9 - Sepsis, unspecified organism Category: Medical Code(s): A41.9 - Sepsis, unspecified organism (2) Healthcare associated bacterial pneumonia Current visit: Yes Status: Acute Category: Medical Code(s): J15.9 - Unspecified bacterial pneumonia (3) Acute kidney injury (nontraumatic) Current visit: Yes Status: Acute Category: Medical Code(s): N17.9 - Acute kidney failure, unspecified (4) SIRS (systemic inflammatory response syndrome) Current visit: Yes Status: Acute Category: Medical Code(s): R65.10 - Systemic inflammatory response syndrome (SIRS) of non-infectious origin without acute organ dysfunction (5) Stage II pressure ulcer of buttock Current visit: Yes Status: Acute Qualifiers: Laterality: left Qualified Code(s): L89.322 - Pressure ulcer of left buttock, stage 2 Category: Medical Code(s): L89.302 - Pressure ulcer of unspecified buttock, stage 2 (6) Diastolic heart failure Current visit: Yes Status: Acute Qualifiers: Heart failure chronicity: chronic Qualified Code(s): I50.32 - Chronic diastolic (congestive) heart failure Category: Medical Code(s): I50.30 - Unspecified diastolic (congestive) heart failure (7) Neuropathy Current visit: Yes Status: Acute Category: Medical Code(s): G62.9 - Polyneuropathy, unspecified (8) Amputation, traumatic, toes Current visit: Yes Status: Acute Qualifiers: Laterality: left Category: Medical Code(s): S98.139A - Complete traumatic amputation of one unspecified lesser toe, initial encounter (9) CKD (chronic kidney disease) Current visit: Yes Status: Acute Qualifiers: Chronic kidney disease stage: stage 4 (severe) Qualified Code(s): N18.4 - Chronic kidney disease, stage 4 (severe) Category: Medical Code(s): N18.9 - Chronic kidney disease, unspecified (10) Acute lower UTI (urinary tract infection) Current visit: Yes Status: Acute Category: Medical Code(s): N39.0 - Urinary tract infection, site not specified (11) E-coli UTI Current visit: Yes Status: Acute Category: Medical Code(s): N39.0 - Urinary tract infection, site not specified; B96.20 - Unspecified Escherichia coli [E. coli] as the cause of diseases classified elsewhere (12) Anemia, iron deficiency Current visit: Yes Status: Acute Category: Medical Code(s): D50.9 - Iron deficiency anemia, unspecified - Assessment and plan all Dx Assessment and Plan for all problems:: BASED ON PATIENT'S FACTORS, RECOMMEND STARTING WITH VANCOMYCIN 1500 MG Q48H AT THIS TIME. PATIENT ALSO STARTING CEFEPIME 1 GM Q12H. ABX CHANGED THIS MORNING FROM ZOSYN AND LEVOFLOXACIN. PHARMACY WILL FOLLOW DAILY AND ADJUST APPROPRIATE.
[2019-08-06 08:41] LABS: Basophils # 0.1 K/mm3 (0-0.2); Basophils % 0.9 % (0.1-2.0); Eosinophils # 0.1 K/mm3 (0.0-0.4); Eosinophils % 0.9 % (0.1-12.0); Hematocrit 32.8 % (37.0-47.0); Hemoglobin 10.3 g/dL (12.2-16.2); Lymphocytes # 1.2 K/mm3 (0.7-4.5); Lymphocytes % 15.6 % (10-50); Mean Corpuscular HGB Conc 31.4 g/dL (31.8-35.4); Mean Corpuscular Volume 83.5 fl (81-99); Monocytes # 0.6 K/mm3 (0.1-1.0); Neutrophils # 6.1 K/mm3 (1.8-7.8); Neutrophils % 75.8 % (37.0-80.0); Platelet Count 286 K/mm3 (142-424); Red Blood Count 3.93 M/mm3 (4.20-5.40)
[2019-08-06 08:48] LABS: Anion Gap 14.3 mEq/L (5-15); Calcium 7.2 mg/dL (8.5-10.1)
--- NOTE | 2019-08-06 09:24 | Progress Note ---
Internal Medicine - PN: Subj *Date: 08/06/19 *Time: 09:21 Interval history: 84-year-old female patient sitting up in bed respirations easy even, she reports she is feeling better. After blood infusing yesterday her temperature was 102, this morning she is afebrile sputum culture was MRSA positive, will add vancomycin and cefepime. Exam Vital signs and Labs for Last 24 Hours: Temp Pulse Resp BP Pulse Ox 98.0 F 99 H 17 172/68 H 93 L 08/06/19 08:00 08/06/19 08:00 08/06/19 08:00 08/06/19 08:00 08/06/19 08:00 Laboratory Results - last 24 hr 08/05/19 00:20: Hgb 10.2 L D, Hct 31.7 L 08/05/19 06:50: Hgb 7.4 L* D 08/05/19 09:25: Blood Type O Negative, Antibody Screen Negative, Crossmatch (AHG) See Detail 08/05/19 14:21: Blood Type Confirm O Negative 08/05/19 20:55: POC Glucose 143 H 08/06/19 00:20: Direct Antiglob Test Negative, Hemolysis Bld Bag Check No, Pre- Trans Blood Type O negative, Pre-Trans Vis Hemolysis No, Pre-Trans Antibody Scrn Negative, Post-Trans Blood Type O negative, Post-Tx Visible Hemolys No, Post- Trans Antibody Scrn Negative 08/06/19 08:32: WBC 8.0, RBC 3.93 L D, Hgb 10.3 L, Hct 32.8 L, MCV 83.5, MCH 26.2 L, MCHC 31.4 L, RDW 15.0, Plt Count 286, MPV 9.0, Neut % (Auto) 75.8, Lymph % (Auto) 15.6, [place] % (Auto) 7.0, Eos % (Auto) 0.9, Baso % (Auto) 0.9, Neut # (Auto) 6.1, Lymph # (Auto) 1.2, [place] # (Auto) 0.6, Eos # (Auto) 0.1, Baso # (Auto) 0.1 08/06/19 08:32: Sodium 127 L, Potassium 4.3, Chloride 94 L, Carbon Dioxide 23, Anion Gap 14.3, BUN 36 H, Creatinine 1.88 H, Estimated Creat Clear 28, Estimated GFR 25 L, Est GFR ( Amer) 31 L D, Glucose 133 H, Calcium 7.2 L I & O for Last 24 hours: Intake & Output 08/03/19 08/04/19 08/05/19 08/06/19 23:59 23:59 23:59 23:59 Intake Total 1580 / 1580 2104 / 2104 4239 / 4239 1284 / 1284 Output Total 600 / 600 300 / 300 Balance 1580 / 1180 1504 / 1504 3939 / 3939 1284 / 1284 Weight 177 lb 178 lb 9.191 oz 178 lb 9.191 oz 178 lb 9.191 oz Microbiology Reports for the Last 24 Hours: Microbiology 08/03/19 16:00 Sputum - Expectorated Sputum Gram Stain - Final 08/03/19 16:00 Sputum - Expectorated Sputum Sputum Culture - Final Staphylococcus aureus 08/03/19 11:23 Blood Blood Culture - Preliminary NO GROWTH AFTER 48 HOURS 08/03/19 11:23 Blood Blood Culture - Preliminary NO GROWTH AFTER 48 HOURS 08/03/19 11:23 Urine,Catheterized Urine Culture - Final Escherichia coli - Constitutional no acute distress - *Routine HEENT Exam Head: Present: normocephalic, atraumatic. Absent: tenderness of temporal artery Eye: Present: EOMI, PERRL, normal accommodation ENT: Present: mucous membranes dry - *Routine Neck Exam Present: full ROM, trachea midline. Absent: JVD, tracheal deviation - *Routine Respiratory Exam Present: wheezes. Absent: accessory muscle use - *Routine Cardiovascular Exam Present: RRR, murmur - *Routine Abdominal Exam Present: soft, normoactive bowel sounds. Absent: tenderness, firm - *Routine Extremities Exam Present: full ROM, pulses intact. Absent: calf tenderness - Routine Back/Spine/Pelvis Exam Back/Spine: Present: full ROM. Absent: CVA tenderness - *Routine Skin Exam Comments: Amputted inner toes L foot Stg II L buttock Stg I R buttock - *Routine Neurological Exam Present: alert, CN II-XII intact Assessment and Plan (1) Sepsis Current visit: Yes Status: Acute Qualifiers: Sepsis type: sepsis due to unspecified organism Sepsis acute organ dysfunction status: unspecified Qualified Code(s): A41.9 - Sepsis, unspecified organism Category: Medical Code(s): A41.9 - Sepsis, unspecified organism (2) Healthcare associated bacterial pneumonia Current visit: Yes Status: Acute Category: Medical Code(s): J15.9 - Unsp ecified bacterial pneumonia (3) Acute kidney injury (nontraumatic) Current visit: Yes Status: Acute Category: Medical Code(s): N17.9 - Acute kidney failure, unspecified (4) SIRS (systemic inflammatory response syndrome) Current visit: Yes Status: Acute Category: Medical Code(s): R65.10 - Systemic inflammatory response syndrome (SIRS) of non-infectious origin without acute organ dysfunction (5) Stage II pressure ulcer of buttock Current visit: Yes Status: Acute Qualifiers: Laterality: left Qualified Code(s): L89.322 - Pressure ulcer of left buttock, stage 2 Category: Medical Code(s): L89.302 - Pressure ulcer of unspecified buttock, stage 2 (6) Diastolic heart failure Current visit: Yes Status: Acute Qualifiers: Heart failure chronicity: chronic Qualified Code(s): I50.32 - Chronic diastolic (congestive) heart failure Category: Medical Code(s): I50.30 - Unspecified diastolic (congestive) heart failure (7) Neuropathy Current visit: Yes Status: Acute Category: Medical Code(s): G62.9 - Polyneuropathy, unspecified (8) Amputation, traumatic, toes Current visit: Yes Status: Acute Qualifiers: Laterality: left Category: Medical Code(s): S98.139A - Complete traumatic amputation of one unspecified lesser toe, initial encounter (9) CKD (chronic kidney disease) Current visit: Yes Status: Acute Qualifiers: Chronic kidney disease stage: stage 4 (severe) Qualified Code(s): N18.4 - Chronic kidney disease, stage 4 (severe) Category: Medical Code(s): N18.9 - Chronic kidney disease, unspecified (10) Acute lower UTI (urinary tract infection) Current visit: Yes Status: Acute Category: Medical Code(s): N39.0 - Urinary tract infection, site not specified (11) E-coli UTI Current visit: Yes Status: Acute Category: Medical Code(s): N39.0 - Urinary tract infection, site not specified; B96.20 - Unspecified Escherichia coli [E. coli] as the cause of diseases classified elsewhere (12) Anemia, iron deficiency Current visit: Yes Status: Acute Category: Medical Code(s): D50.9 - Iron deficiency anemia, unspecified (13) MRSA (methicillin resistant staphylococcus aureus) pneumonia Current visit: Yes Status: Acute Category: Medical Code(s): J15.212 - Pneumonia due to Methicillin resistant Staphylococcus aureus - Assessment and plan all Dx Assessment and Plan for all problems:: Rounded with Dr. Gooden, all orders per Dr. Gooden 1. Add Vanco and cefepime IV and breathing treatments 2. Out of bed 3. Chest x-ray
--- NOTE | 2019-08-06 13:41 | Progress Note ---
Internal Medicine - PN: Subj *Date: 08/06/19 *Time: 13:39 Exam Vital signs and Labs for Last 24 Hours: Temp Pulse Resp BP Pulse Ox 98.0 F 95 H 17 172/68 H 93 L 08/06/19 08:00 08/06/19 11:37 08/06/19 08:00 08/06/19 08:00 08/06/19 08:00 Laboratory Results - last 24 hr 08/05/19 00:20: Hgb 10.2 L D, Hct 31.7 L 08/05/19 06:50: Hgb 7.4 L* D 08/05/19 09:25: Blood Type O Negative, Antibody Screen Negative, Crossmatch (AHG) See Detail 08/05/19 14:21: Blood Type Confirm O Negative 08/05/19 20:55: POC Glucose 143 H 08/06/19 00:20: Direct Antiglob Test Negative, Hemolysis Bld Bag Check No, Pre- Trans Blood Type O negative, Pre-Trans Vis Hemolysis No, Pre-Trans Antibody Scrn Negative, Post-Trans Blood Type O negative, Post-Tx Visible Hemolys No, Post- Trans Antibody Scrn Negative 08/06/19 08:32: WBC 8.0, RBC 3.93 L D, Hgb 10.3 L, Hct 32.8 L, MCV 83.5, MCH 26.2 L, MCHC 31.4 L, RDW 15.0, Plt Count 286, MPV 9.0, Neut % (Auto) 75.8, Lymph % (Auto) 15.6, [place] % (Auto) 7.0, Eos % (Auto) 0.9, Baso % (Auto) 0.9, Neut # (Auto) 6.1, Lymph # (Auto) 1.2, [place] # (Auto) 0.6, Eos # (Auto) 0.1, Baso # (Auto) 0.1 08/06/19 08:32: Sodium 127 L, Potassium 4.3, Chloride 94 L, Carbon Dioxide 23, Anion Gap 14.3, BUN 36 H, Creatinine 1.88 H, Estimated Creat Clear 28, Estimated GFR 25 L, Est GFR ( Amer) 31 L D, Glucose 133 H, Calcium 7.2 L I & O for Last 24 hours: Intake & Output 08/03/19 08/04/19 08/05/19 08/06/19 23:59 23:59 23:59 23:59 Intake Total 1580 / 1580 2104 / 2104 4239 / 4239 1284 / 1284 Output Total 600 / 600 300 / 300 Balance 1580 / 1180 1504 / 1504 3939 / 3939 1284 / 1284 Weight 80.286 kg 81 kg 81 kg 81 kg Microbiology Reports for the Last 24 Hours: Microbiology 08/03/19 16:00 Sputum - Expectorated Sputum Gram Stain - Final 08/03/19 16:00 Sputum - Expectorated Sputum Sputum Culture - Final Staphylococcus aureus 08/03/19 11:23 Blood Blood Culture - Preliminary NO GROWTH AFTER 48 HOURS 08/03/19 11:23 Blood Blood Culture - Preliminary NO GROWTH AFTER 48 HOURS Assessment and Plan (1) Sepsis Current visit: Yes Status: Acute Qualifiers: Sepsis type: sepsis due to unspecified organism Sepsis acute organ dysfunction status: unspecified Qualified Code(s): A41.9 - Sepsis, unspecified organism Category: Medical Code(s): A41.9 - Sepsis, unspecified organism (2) Healthcare associated bacterial pneumonia Current visit: Yes Status: Acute Category: Medical Code(s): J15.9 - Unspecified bacterial pneumonia (3) Acute kidney injury (nontraumatic) Current visit: Yes Status: Acute Category: Medical Code(s): N17.9 - Acute kidney failure, unspecified (4) SIRS (systemic inflammatory response syndrome) Current visit: Yes Status: Acute Category: Medical Code(s): R65.10 - Systemic inflammatory response syndrome (SIRS) of non-infectious origin without acute organ dysfunction (5) Stage II pressure ulcer of buttock Current visit: Yes Status: Acute Qualifiers: Laterality: left Qualified Code(s): L89.322 - Pressure ulcer of left buttock, stage 2 Category: Medical Code(s): L89.302 - Pressure ulcer of unspecified buttock, stage 2 (6) Diastolic heart failure Current visit: Yes Status: Acute Qualifiers: Heart failure chronicity: chronic Qualified Code(s): I50.32 - Chronic diastolic (congestive) heart failure Category: Medical Code(s): I50.30 - Unspecified diastolic (congestive) heart failure (7) Neuropathy Current visit: Yes Status: Acute Category: Medical Code(s): G62.9 - Polyneuropathy, unspecified (8) Amputation, traumatic, toes Current visit: Yes Status: Acute Qualifiers: Laterality: left Category: Medical Code(s): S98.139A - Complete traumatic amputation of one unspecified lesser toe, initial encounter (9) CKD (chronic kidney disease) Current visit: Yes Status: Acute Qualifiers: Chronic kidney disease stage: stage 4 (severe) Qualified Code(s): N18.4 - Chronic kidney disease, stage 4 (severe) Category: Medical Code(s): N18.9 - Chronic kidney disease, unspecified (10) Acute lower UTI (urinary tract infection) Current visit: Yes Status: Acute Category: Medical Code(s): N39.0 - Urinary tract infection, site not specified (11) E-coli UTI Current visit: Yes Status: Acute Category: Medical Code(s): N39.0 - Urinary tract infection, site not specified; B96.20 - Unspecified Escherichia coli [E. coli] as the cause of diseases classified elsewhere (12) Anemia, iron deficiency Current visit: Yes Status: Acute Category: Medical Code(s): D50.9 - Iron deficiency anemia, unspecified (13) MRSA (methicillin resistant staphylococcus aureus) pneumonia Current visit: Yes Status: Acute Category: Medical Code(s): J15.212 - Pneumonia due to Methicillin resistant Staphylococcus aureus The patient's infection will respond to the chosen ABx?: Yes Is the patient receiving the right drug, dose, and route?: Yes Could a more targeted ABx be ordered?: No (ABX CHANGED TO CEFEPIME AND VANCOMYCIN THIS MORNING BASED ON CULTURES.)
[2019-08-07 07:25] LABS: Basophils # 0.1 K/mm3 (0-0.2); Eosinophils % 0.5 % (0.1-12.0); Hematocrit 35.7 % (37.0-47.0); Hemoglobin 10.5 g/dL (12.2-16.2); Lymphocytes # 1.4 K/mm3 (0.7-4.5); Lymphocytes % 16.7 % (10-50); Mean Corpuscular HGB Conc 29.4 g/dL (31.8-35.4); Mean Corpuscular Volume 88.5 fl (81-99); Mean Platelet Volume 7.8 fl (7.4-10.4); Monocytes # 0.8 K/mm3 (0.1-1.0); Monocytes % 9.7 % (1.7-9.3); Neutrophils # 5.9 K/mm3 (1.8-7.8); Neutrophils % 72.1 % (37.0-80.0); Platelet Count 270 K/mm3 (142-424); Red Blood Count 4.03 M/mm3 (4.20-5.40); Red Cell Distribution Width 15.4 % (11.5-17.5); White Blood Count 8.2 K/mm3 (4.8-10.8)
[2019-08-07 07:52] LABS: Anion Gap 15.5 mEq/L (5-15)
[2019-08-07 08:02] LABS: Calcium 8.1 mg/dL (8.5-10.1)
--- NOTE | 2019-08-07 09:28 | Progress Note ---
Internal Medicine - PN: Subj *Date: 08/07/19 *Time: 09:25 Interval history: pt sitting up in bed eating. Exam Vital signs and Labs for Last 24 Hours: Temp Pulse Resp BP Pulse Ox 100.6 F H 102 H 18 155/66 H 98 08/07/19 09:11 08/07/19 08:00 08/07/19 08:00 08/07/19 08:00 08/07/19 08:00 Laboratory Results - last 24 hr 08/07/19 07:00: WBC 8.2, RBC 4.03 L, Hgb 10.5 L, Hct 35.7 L, MCV 88.5, MCH 26.1 L, MCHC 29.4 L, RDW 15.4, Plt Count 270, MPV 7.8, Neut % (Auto) 72.1, Lymph % (Auto) 16.7, [place] % (Auto) 9.7 H, Eos % (Auto) 0.5, Baso % (Auto) 1.0, Neut # (Auto) 5.9, Lymph # (Auto) 1.4, [place] # (Auto) 0.8, Eos # (Auto) 0.0, Baso # (Auto) 0.1 08/07/19 07:00: Sodium 131 L, Potassium 4.5, Chloride 98, Carbon Dioxide 22, Anion Gap 15.5 H, BUN 39 H, Creatinine 1.81 H, Estimated Creat Clear 20, Estimated GFR 27 L, Est GFR ( Amer) 32 L, Glucose 101 D, Calcium 8.1 L D I & O for Last 24 hours: Intake & Output 08/04/19 08/05/19 08/06/19 08/07/19 11:59 11:59 11:59 11:59 Intake Total 3084 / 3084 3459 / 3459 3144 / 3144 2027 Output Total 600 / 600 300 / 300 Balance 2484 / 2484 3159 / 3159 3144 / 3144 2027 Weight 179 lb 4 oz 178 lb 9.191 oz 178 lb 9.191 oz 399 lb 0.587 oz Microbiology Reports for the Last 24 Hours: Microbiology 08/03/19 16:00 Sputum - Expectorated Sputum Gram Stain - Final 08/03/19 16:00 Sputum - Expectorated Sputum Sputum Culture - Final Staphylococcus aureus - Constitutional no acute distress, chronically ill appearing - *Routine HEENT Exam Head: Present: normocephalic Eye: Present: PERRL ENT: Present: mucous membranes moist - *Routine Neck Exam Present: supple. Absent: lymphadenopathy - *Routine Respiratory Exam Present: decreased breath sounds, rhonchi, wheezes - *Routine Cardiovascular Exam Present: RRR - *Routine Abdominal Exam Present: soft, normoactive bowel sounds. Absent: tenderness - *Routine Extremities Exam Present: full ROM, normal capillary refill. Absent: cyanosis, clubbing, edema - *Routine Skin Exam Present: warm, wounds. Absent: rash Comments: stage two to buttocks rt foot first three toes amp with sore to 4th toe - *Routine Neurological Exam Present: alert, oriented X3 - Routine Psychiatric Exam Present: normal affect Assessment and Plan (1) Sepsis Current visit: Yes Status: Acute Qualifiers: Sepsis type: sepsis due to unspecified organism Sepsis acute organ dysfunction status: unspecified Qualified Code(s): A41.9 - Sepsis, unspecified organism Category: Medical Code(s): A41.9 - Sepsis, unspecified organism (2) Healthcare associated bacterial pneumonia Current visit: Yes Status: Acute Category: Medical Code(s): J15.9 - Unspecified bacterial pneumonia (3) Acute kidney injury (nontraumatic) Current visit: Yes Status: Acute Category: Medical Code(s): N17.9 - Acute kidney failure, unspecified (4) SIRS (systemic inflammatory response syndrome) Current visit: Yes Status: Acute Category: Medical Code(s): R65.10 - Systemic inflammatory response syndrome (SIRS) of non-infectious origin without acute organ dysfunction (5) Stage II pressure ulcer of buttock Current visit: Yes Status: Acute Qualifiers: Laterality: left Qualified Code(s): L89.322 - Pressure ulcer of left buttock, stage 2 Category: Medical Code(s): L89.302 - Pressure ulcer of unspecified buttock, stage 2 (6) Diastolic heart failure Current visit: Yes Status: Acute Qualifiers: Heart failure chronicity: chronic Qualified Code(s): I50.32 - Chronic diastolic (congestive) heart failure Category: Medical Code(s): I50.30 - Unspecified diastolic (congestive) heart failure (7) Neuropathy Current visit: Yes Status: Acute Category: Medical Code(s): G62.9 - Polyneuropathy, unspecified (8) Amputation, traumatic, toes Current visit: Yes Status: Acute Qualifiers: Laterality: left Category: Medical Code(s): S98.139A - Complete traumatic amputation of one unspecified lesser toe, initial encounter (9) CKD (chronic kidney disease) Current visit: Yes Status: Acute Qualifiers: Chronic kidney disease stage: stage 4 (severe) Qualified Code(s): N18.4 - Chronic kidney disease, stage 4 (severe) Category: Medical Code(s): N18.9 - Chronic kidney disease, unspecified (10) Acute lower UTI (urinary tract infection) Current visit: Yes Status: Acute Category: Medical Code(s): N39.0 - Urinary tract infection, site not specified (11) E-coli UTI Current visit: Yes Status: Acute Category: Medical Code(s): N39.0 - Urinary tract infection, site not specified; B96.20 - Unspecified Escherichia coli [E. coli] as the cause of diseases classified elsewhere (12) Anemia, iron deficiency Current visit: Yes Status: Acute Category: Medical Code(s): D50.9 - Iron deficiency anemia, unspecified (13) MRSA (methicillin resistant staphylococcus aureus) pneumonia Current visit: Yes Status: Acute Category: Medical Code(s): J15.212 - Pneumonia due to Methicillin resistant Staphylococcus aureus - Assessment and plan all Dx Assessment and Plan for all problems:: rounded with dr pierre all orders per dr pierre ct chest modified speech add clinda due to poss aspiration
[2019-08-07 18:35] LABS: Microscopic, Urine URINE MICROSCOPIC (MICROSCOPIC)
[2019-08-07 18:40] LABS: Appearance,Urine CLEAR (Clear); Bilirubin,Urine Negative (Negative); Blood, Urine 1+ (Negative); Color,Urine YELLOW (Yellow); Glucose,Urine (UA) Negative (Negative); Ketones,Urine Negative (Negative); Leukocyte Esterase,Urine Negative (Negative); PH,Urine 5.5 (5.0-8.5); Protein,Urine 1+ (Negative); Specific Gravity, Urine 1.025 (1.005-1.030); Urobilinogen,Urine 0.2 EU/dl (0.2)
[2019-08-07 18:53] LABS: Bacteria,Urine Trace /lpf; RBC,Urine Occasional #/hpf (0-3)
[2019-08-08 06:21] LABS: Basophils # 0.1 K/mm3 (0-0.2); Basophils % 1.1 % (0.1-2.0); Eosinophils # 0.1 K/mm3 (0.0-0.4); Eosinophils % 1.3 % (0.1-12.0); Hematocrit 31.3 % (37.0-47.0); Hemoglobin 9.5 g/dL (12.2-16.2); Lymphocytes # 1.6 K/mm3 (0.7-4.5); Mean Corpuscular HGB Conc 30.2 g/dL (31.8-35.4); Mean Corpuscular Volume 87.1 fl (81-99); Mean Platelet Volume 8.3 fl (7.4-10.4); Monocytes # 0.5 K/mm3 (0.1-1.0); Monocytes % 7.5 % (1.7-9.3); Neutrophils # 4.2 K/mm3 (1.8-7.8); Neutrophils % 65.2 % (37.0-80.0); Platelet Count 251 K/mm3 (142-424); Red Cell Distribution Width 15.5 % (11.5-17.5); White Blood Count 6.4 K/mm3 (4.8-10.8)
[2019-08-08 06:27] LABS: Anion Gap 13.5 mEq/L (5-15); Calcium 8.4 mg/dL (8.5-10.1)
--- NOTE | 2019-08-08 09:16 | Progress Note ---
<Bettina Lay - Last Filed: 08/08/19 09:12> Internal Medicine - PN: Subj *Date: 08/08/19 *Time: 09:12 Interval history: pt has increase hr 140-150, pt is having increase work of breathing. pt states she feels bad Exam Vital signs and Labs for Last 24 Hours: Temp Pulse Resp BP Pulse Ox 99.0 F 68 21 108/69 L 91 L 08/08/19 04:00 08/08/19 06:13 08/08/19 04:00 08/08/19 04:00 08/08/19 06:13 Laboratory Results - last 24 hr 08/07/19 16:50: Urine Color Yellow, Urine Appearance Clear, Urine pH 5.5, Ur Specific [place] 1.025, Urine Protein 1+, Urine Glucose (UA) Negative, Urine Ketones Negative, Urine Blood 1+, Urine Nitrate Negative, Urine Bilirubin Negative, Urine Urobilinogen 0.2, Ur Leukocyte Esterase Negative, Urine RBC Occasional, Urine WBC 3-5, Ur Squamous Epith Cells 5-10, Urine Bacteria Trace 08/08/19 05:57: POC Glucose 101 08/08/19 05:59: WBC 6.4, RBC 3.60 L, Hgb 9.5 L, Hct 31.3 L, MCV 87.1, MCH 26.3 L , MCHC 30.2 L, RDW 15.5, Plt Count 251, MPV 8.3, Neut % (Auto) 65.2, Lymph % (Auto) 25.0, [place] % (Auto) 7.5, Eos % (Auto) 1.3, Baso % (Auto) 1.1, Neut # (Auto) 4.2, Lymph # (Auto) 1.6, [place] # (Auto) 0.5, Eos # (Auto) 0.1, Baso # (Auto) 0.1 08/08/19 05:59: Sodium 131 L, Potassium 4.5, Chloride 99, Carbon Dioxide 23, Anion Gap 13.5, BUN 45 H, Creatinine 2.03 H, Estimated Creat Clear 26, Estimated GFR 23 L, Est GFR ( Amer) 28 L, Glucose 101, Calcium 8.4 L I & O for Last 24 hours: Intake & Output 08/05/19 08/06/19 08/07/19 08/08/19 11:59 11:59 11:59 11:59 Intake Total 3459 / 3459 3144 / 3144 2508 / 2508 2612 / 2612 Output Total 300 / 300 500 / 500 Balance 3159 / 3159 3144 / 3144 2508 / 2508 2111 / 2111 Weight 178 lb 9.191 oz 178 lb 9.191 oz 178 lb 9.191 oz 179 lb 9.417 oz - Constitutional moderate distress, chronically ill appearing - *Routine HEENT Exam Head: Present: normocephalic Eye: Present: PERRL ENT: Present: mucous membranes moist - *Routine Neck Exam Present: supple. Absent: lymphadenopathy - *Routine Respiratory Exam Present: wheezes, crackles, diminished air movement - *Routine Cardiovascular Exam Present: tachycardia, irregular rhythm - *Routine Abdominal Exam Present: soft, normoactive bowel sounds. Absent: tenderness - *Routine Extremities Exam Present: full ROM. Absent: cyanosis, clubbing, edema - *Routine Skin Exam Present: warm, wounds. Absent: rash Comments: stage 2 to buttocks rt foot first three toes amp and 4th toe scabbed area to toe. heels boggy- protectors in place - *Routine Neurological Exam Present: alert, oriented X3 - Routine Psychiatric Exam Present: normal affect Assessment and Plan (1) Sepsis Current visit: Yes Status: Acute Qualifiers: Sepsis type: sepsis due to unspecified organism Sepsis acute organ dysfunction status: unspecified Qualified Code(s): A41.9 - Sepsis, unspecified organism Category: Medical Code(s): A41.9 - Sepsis, unspecified organism (2) Healthcare associated bacterial pneumonia Current visit: Yes Status: Acute Category: Medical Code(s): J15.9 - Unspecified bacterial pneumonia (3) Acute kidney injury (nontraumatic) Current visit: Yes Status: Acute Category: Medical Code(s): N17.9 - Acute kidney failure, unspecified (4) SIRS (systemic inflammatory response syndrome) Current visit: Yes Status: Acute Category: Medical Code(s): R65.10 - Systemic inflammatory response syndrome (SIRS) of non-infectious origin without acute organ dysfunction (5) Stage II pressure ulcer of buttock Current visit: Yes Status: Acute Qualifiers: Laterality: left Qualified Code(s): L89.322 - Pressure ulcer of left buttoc k, stage 2 Category: Medical Code(s): L89.302 - Pressure ulcer of unspecified buttock, stage 2 (6) Diastolic heart failure Current visit: Yes Status: Acute Qualifiers: Heart failure chronicity: chronic Qualified Code(s): I50.32 - Chronic diastolic (congestive) heart failure Category: Medical Code(s): I50.30 - Unspecified diastolic (congestive) heart failure (7) Neuropathy Current visit: Yes Status: Acute Category: Medical Code(s): G62.9 - Polyneuropathy, unspecified (8) Amputation, traumatic, toes Current visit: Yes Status: Acute Qualifiers: Laterality: left Category: Medical Code(s): S98.139A - Complete traumatic amputation of one unspecified lesser toe, initial encounter (9) CKD (chronic kidney disease) Current visit: Yes Status: Acute Qualifiers: Chronic kidney disease stage: stage 4 (severe) Qualified Code(s): N18.4 - Chronic kidney disease, stage 4 (severe) Category: Medical Code(s): N18.9 - Chronic kidney disease, unspecified (10) Acute lower UTI (urinary tract infection) Current visit: Yes Status: Acute Category: Medical Code(s): N39.0 - Urinary tract infection, site not specified (11) E-coli UTI Current visit: Yes Status: Acute Category: Medical Code(s): N39.0 - Urinary tract infection, site not specified; B96.20 - Unspecified Escherichia coli [E. coli] as the cause of diseases classified elsewhere (12) Anemia, iron deficiency Current visit: Yes Status: Acute Category: Medical Code(s): D50.9 - Iron deficiency anemia, unspecified (13) MRSA (methicillin resistant staphylococcus aureus) pneumonia Current visit: Yes Status: Acute Category: Medical Code(s): J15.212 - Pneumonia due to Methicillin resistant Staphylococcus aureus - Assessment and plan all Dx Assessment and Plan for all problems:: cherelle at bedside to see pt- spoke to daughter-ellis she at this time wants aggressive treatment discussed moving to step down and placing on drip and having cardiology to see pt. ekg. steroids <Warren Navarro - Last Filed: 08/08/19 13:17> Internal Medicine - PN: Subj *Date: 08/08/19 *Time: 13:16 Exam Vital signs and Labs for Last 24 Hours: Temp Pulse Resp BP Pulse Ox 98.3 F 119 H 20 108/54 L 96 08/08/19 08:00 08/08/19 13:04 08/08/19 12:00 08/08/19 12:00 08/08/19 12:00 Laboratory Results - last 24 hr 08/07/19 16:50: Urine Color Yellow, Urine Appearance Clear, Urine pH 5.5, Ur Specific [place] 1.025, Urine Protein 1+, Urine Glucose (UA) Negative, Urine Ketones Negative, Urine Blood 1+, Urine Nitrate Negative, Urine Bilirubin Negative, Urine Urobilinogen 0.2, Ur Leukocyte Esterase Negative, Urine RBC Occasional, Urine WBC 3-5, Ur Squamous Epith Cells 5-10, Urine Bacteria Trace 08/08/19 05:57: POC Glucose 101 08/08/19 05:59: WBC 6.4, RBC 3.60 L, Hgb 9.5 L, Hct 31.3 L, MCV 87.1, MCH 26.3 L , MCHC 30.2 L, RDW 15.5, Plt Count 251, MPV 8.3, Neut % (Auto) 65.2, Lymph % ( Auto) 25.0, [place] % (Auto) 7.5, Eos % (Auto) 1.3, Baso % (Auto) 1.1, Neut # (Auto) 4.2, Lymph # (Auto) 1.6, [place] # (Auto) 0.5, Eos # (Auto) 0.1, Baso # (Auto) 0.1 08/08/19 05:59: Sodium 131 L, Potassium 4.5, Chloride 99, Carbon Dioxide 23, Anion Gap 13.5, BUN 45 H, Creatinine 2.03 H, Estimated Creat Clear 26, Estimated GFR 23 L, Est GFR ( Amer) 28 L, Glucose 101, Calcium 8.4 L 08/08/19 05:59: Troponin I 0.08 H 08/08/19 09:10: Vancomycin Trough 6.8 L 08/08/19 10:00: Specimen Source L brachial, O2 % 3lpm, ABG pH 7.23 L*, ABG pCO2 41.3, ABG pO2 136.0 H, ABG HCO3 16.9 L, ABG Total CO2 18.2 L, ABG O2 Saturation 98, ABG Base Excess -10.6 L 08/08/19 11:51: POC Glucose 199 H I & O for Last 24 hours: Intake & Output 08/05/19 08/06/19 08/07/19 08/08/19 23:59 23:59 23:59 23:59 Intake Total 4239 / 4239 1884 / 1884 4147 / 4147 1033 / 1033 Output Total 300 / 300 200 / 200 300 / 300 Balance 3939 / 3939 1884 / 1884 3947 / 3947 733 / 733 Weight 81 kg 81 kg 81 kg 81.46 kg Microbiology Reports for the Last 24 Hours: Microbiology 08/03/19 11:23 Blood Blood Culture - Final NO GROWTH AFTER 5 DAYS 08/03/19 11:23 Blood Blood Culture - Final NO GROWTH AFTER 5 DAYS Assessment and Plan (1) Sepsis Current visit: Yes Status: Acute Qualifiers: Sepsis type: sepsis due to unspecified organism Sepsis acute organ dysfunction status: unspecified Qualified Code(s): A41.9 - Sepsis, unspecified organism Category: Medical Code(s): A41.9 - Sepsis, unspecified organism (2) Healthcare associated bacterial pneumonia Current visit: Yes Status: Acute Category: Medical Code(s): J15.9 - Unspecified bacterial pneumonia (3) Acute kidney injury (nontraumatic) Current visit: Yes Status: Acute Category: Medical Code(s): N17.9 - Acute kidney failure, unspecified (4) SIRS (systemic inflammatory response syndrome) Current visit: Yes Status: Acute Category: Medical Code(s): R65.10 - Systemic inflammatory response syndrome (SIRS) of non-infectious origin without acute organ dysfunction (5) Stage II pressure ulcer of buttock Current visit: Yes Status: Acute Qualifiers: Laterality: left Qualified Code(s): L89.322 - Pressure ulcer of left buttock, stage 2 Category: Medical Code(s): L89.302 - Pressure ulcer of unspecified buttock, stage 2 (6) Diastolic heart failure Current visit: Yes Status: Acute Qualifiers: Heart failure chronicity: chronic Qualified Code(s): I50.32 - Chronic diastolic (congestive) heart failure Category: Medical Code(s): I50.30 - Unspecified diastolic (congestive) heart failure (7) Neuropathy Current visit: Yes Status: Acute Category: Medical Code(s): G62.9 - Polyneuropathy, unspecified (8) Amputation, traumatic, toes Current visit: Yes Status: Acute Qualifiers: Laterality: left Category: Medical Code(s): S98.139A - Complete traumatic amputation of one unspecified lesser toe, initial encounter (9) CKD (chronic kidney disease) Current visit: Yes Status: Acute Qualifiers: Chronic kidney disease stage: stage 4 (severe) Qualified Code(s): N18.4 - Chronic kidney disease, stage 4 (severe) Category: Medical Code(s): N18.9 - Chronic kidney disease, unspecified (10) Acute lower UTI (urinary tract infection) Current visit: Yes Status: Acute Category: Medical Code(s): N39.0 - Urin [place] tract infection, site not specified (11) E-coli UTI Current visit: Yes Status: Acute Category: Medical Code(s): N39.0 - Urinary tract infection, site not specified; B96.20 - Unspecified Escherichia coli [E. coli] as the cause of diseases classified elsewhere (12) Anemia, iron deficiency Current visit: Yes Status: Acute Category: Medical Code(s): D50.9 - Iron deficiency anemia, unspecified (13) MRSA (methicillin resistant staphylococcus aureus) pneumonia Current visit: Yes Status: Acute Category: Medical Code(s): J15.212 - Pneumonia due to Methicillin resistant Staphylococcus aureus (14) Atrial fibrillation with RVR Current visit: Yes Status: Acute Category: Medical Code(s): I48.91 - Unspecified atrial fibrillation - Assessment and plan all Dx Assessment and Plan for all problems:: Rounded with nurse practitioner this morning. Agree with exam findings and care plan as documented. Patient appears critically ill. In the setting of no improvement with continued antibiotics, worsening respiratory and cardiac failure, DNR status, patient is appropriate for consideration for hospice after discussion with family.
--- NOTE | 2019-08-08 09:48 | Consult Report ---
History of Present Illness Consult date: 08/08/19 Requesting physician: Warren Navarro Consult reason: atrial fibrillation Chief complaint: A. fib with RVR Additional Medical History:: 1. Chronic kidney disease, stage IV 2. History of CVA 3. New onset atrial fibrillation with rapid ventricular response, 08/2019 4. Bilateral pneumonia and MRSA sepsis, 08/2019, with possible endocarditis 5. Chronic anemia likely secondary to chronic disease A. History of recurrent blood transfusions 6. DNR 7. History of diastolic congestive heart failure 8. Hyperlipidemia 9. Hypothyroidism, on replacement therapy History of present illness: 84-year-old white female sent from [facility] [place] for shortness of breath. Chest x-ray revealed evidence of bilateral pneumonia with further work- up showing evidence of UTI and elevated white count. White count has responded quickly to IV antibiotics patient continues to spike fevers intermittently. Patient noted to have elevated heart rate during echocardiogram today which was obtained for possible endocarditis as etiology for recurrent fever. EKG confirmed atrial fibrillation with a rapid ventricular response and cardiology consulted for evaluation. Troponins obtained earlier in the stay were within normal limits. Patient has difficulty communicating at this time due to significant shortness of breath. She has audible wheezes and crackles. [facility] History Medical History: Denies:: Cancer, Diabetes Mellitus Type 1, Diabetes Mellitus Type 2, Internal Pacemaker, MRSA *Have you ever received a pneumonia vaccine?: Yes *Have you received a flu vaccine this season?: Yes Other Surgeries: No: Pacemaker Amputation: No - *Social History Educational Level: Completed Grade School Smoking Status: Never smoker Alcohol Intake: never *Occupational Status:: retired Housing: [facility] *Travel in the last 8 weeks: None Family Hx:: Heart Attack Meds Home Medications Medication Instructions Recorded Confirmed Type Acetaminophen [Acetaminophen 325mg 650 mg PO Q8HP PRN 08/03/19 08/03/19 History tab] Alendronate Sodium [Fosamax 70mg 70 mg PO WEEKLY 08/03/19 08/03/19 History Tablet] Atorvastatin Calcium [Lipitor 20mg 20 mg PO DAILY 08/03/19 08/03/19 History Tablet] Clopidogrel Bisulfate [Plavix 75mg 75 mg PO DAILY 08/03/19 08/03/19 History Tab] Erythromycin Base [Erythromycin 0 gm OP HS 08/03/19 08/03/19 History 1gm opth ointment] Erythromycin Base [Erythromycin 1 applicatio TP HS 08/03/19 08/03/19 History 3.5gm opth oinment] Furosemide [Lasix 80mg tab] 80 mg PO DAILY 08/03/19 08/03/19 History Levothyroxine Sodium [Synthroid 50 mcg PO DAILY 08/03/19 08/03/19 History 50mcg (0.05mg) tab] Multivitamin [Multi-Day Vitamins] 1 each PO DAILY 08/03/19 08/03/19 History Multivitamin [Multivitamins] 1 each PO DAILY 08/03/19 08/03/19 History Polymyxin B Sulf/Trimethoprim 0 ml OP TID 08/03/19 08/03/19 History [Polytrim Ophth Soln 10mL Bottle] Polymyxin B Sulf/Trimethoprim 1 drp EYE-BOTH TID 08/03/19 08/03/19 History [Polytrim Ophth Soln 10mL Bottle] Pregabalin 100 mg PO DAILY 08/03/19 08/03/19 History Triamcinolone Acetonide [Kenalog 0 gm TOPICAL BID 08/03/19 08/03/19 History 0.1% cream 30gm tube] Triamcinolone Acetonide [Kenalog 1 applicatio TP BID 08/03/19 08/03/19 History 0.1% cream 30gm tube] Allergies Allergy/AdvReac Type Severity Reaction Status Date / Time No Known Allergies Allergy Verified 08/03/19 11:08 Review of Systems - Review of Systems Review of systems:: unable to obtain - *Neurologic Reports confusion, Denies abnormal speech, Denies seizure-like activity, Denies localized weakness Exam Vital signs and Labs for Last 24 Hours: Temp Pulse Resp BP Pulse Ox 99.0 F 68 21 108/69 L 91 L 08/08/19 04:00 08/08/19 06:13 08/08/19 04:00 08/08/19 04:00 08/08/19 06:13 Laboratory Results - last 24 hr 08/07/19 16:50: Urine Color Yellow, Urine Appearance Clear, Urine pH 5.5, Ur Specific [place] 1.025, Urine Protein 1+, Urine Glucose (UA) Negative, Urine Ketones Negative, Urine Blood 1+, Urine Nitrate Negative, Urine Bilirubin Negative, Urine Urobilinogen 0.2, Ur Leukocyte Esterase Negative, Urine RBC Occasional, Urine WBC 3-5, Ur Squamous Epith Cells 5-10, Urine Bacteria Trace 08/08/19 05:57: POC Glucose 101 08/08/19 05:59: WBC 6.4, RBC 3.60 L, Hgb 9.5 L, Hct 31.3 L, MCV 87.1, MCH 26.3 L , MCHC 30.2 L, RDW 15.5, Plt Count 251, MPV 8.3, Neut % (Auto) 65.2, Lymph % (Auto) 25.0, [place] % (Auto) 7.5, Eos % (Auto) 1.3, Baso % (Auto) 1.1, Neut # (Auto) 4.2, Lymph # (Auto) 1.6, [place] # (Auto) 0.5, Eos # (Auto) 0.1, Baso # (Auto) 0.1 08/08/19 05:59: Sodium 131 L, Potassium 4.5, Chloride 99, Carbon Dioxide 23, Anion Gap 13.5, BUN 45 H, Creatinine 2.03 H, Estimated Creat Clear 26, Estimated GFR 23 L, Est GFR ( Amer) 28 L, Glucose 101, Calcium 8.4 L I & O for Last 24 hours: Intake & Output 08/05/19 08/06/19 08/07/19 08/08/19 11:59 11:59 11:59 11:59 Intake Total 3459 / 3459 3144 / 3144 2508 / 2508 2612 / 2612 Output Total 300 / 300 500 / 500 Balance 3159 / 3159 3144 / 3144 2508 / 2508 2112 / 2112 Weight 178 lb 9.191 oz 178 lb 9.191 oz 178 lb 9.191 oz 179 lb 9.417 oz - Constitutional moderate distress - *Routine HEENT Exam Head: Present: normocephalic Eye: Present: EOMI, PERRL ENT: Present: mucous membranes moist - *Routine Neck Exam Present: supple. Absent: JVD, carotid bruit - *Routine Respiratory Exam Present: rales, rhonchi, wheezes, diminished air movement. Absent: accessory muscle use - *Routine Cardiovascular Exam Present: tachycardia, irregularly irregular. Absent: murmur, gallop, rubs - *Routine Abdominal Exam Present: soft. Absent: tenderness, distended, guarding - *Routine Extremities Exam Present: edema. 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 - *Routine Neurological Exam Present: alert, oriented X3, moving all extremities Assessment and Plan (1) Sepsis Current visit: Yes Status: Acute Qualifiers: Sepsis type: sepsis due to unspecified organism Sepsis acute organ dysfunction status: unspecified Qualified Code(s): A41.9 - Sepsis, unspecified organism Category: Medical Code(s): A41.9 - Sepsis, unspecified organism (2) Healthcare associated bacterial pneumonia Current visit: Yes Status: Acute Category: Medical Code(s): J15.9 - Unspecified bacterial pneumonia (3) Acute kidney injury (nontraumatic) Current visit: Yes Status: Acute Category: Medical Code(s): N17.9 - Acute kidney failure, unspecified (4) SIRS (systemic inflammatory response syndrome) Current visit: Yes Status: Acute Category: Medical Code(s): R65.10 - Systemic inflammatory response syndrome (SIRS) of non-infectious origin without acute organ dysfunction (5) Stage II pressure ulcer of buttock Current visit: Yes Status: Acute Qualifiers: Laterality: left Qualified Code(s): L89.322 - Pressure ulcer of left buttock, stage 2 Category: Medical Code(s): L89.302 - Pressure ulcer of unspecified buttock, stage 2 (6) Diastolic heart failure Current visit: Yes Status: Acute Qualifiers: Heart failure chronicity: chronic Qualified Code(s): I50.32 - Chronic diastolic (congestive) heart failure Category: Medical Code(s): I50.30 - Unspecified diastolic (congestive) heart failure (7) Neuropathy Current visit: Yes Status: Acute Category: Medical Code(s): G62.9 - Polyneuropathy, unspecified (8) Amputation, traumatic, toes Current visit: Yes Status: Acute Qualifiers: Laterality: left Category: Medical Code(s): S98.139A - Complete traumatic amputation of one unspecified lesser toe, initial encounter (9) CKD (chronic kidney disease) Current visit: Yes Status: Acute Qualifiers: Chronic kidney disease stage: stage 4 (severe) Qualified Code(s): N18.4 - Chronic kidney disease, stage 4 (severe) Category: Medical Code(s): N18.9 - Chronic kidney disease, unspecified (10) Acute lower UTI (urinary tract infection) Current visit: Yes Status: Acute Category: Medical Code(s): N39.0 - Urinary tract infection, site not specified (11) E-coli UTI Current visit: Yes Status: Acute Category: Medical Code(s): N39.0 - Urinary tract infection, site not specified; B96.20 - Unspecified Escherichia coli [E. coli] as the cause of diseases classified elsewhere (12) Anemia, iron deficiency Current visit: Yes Status: Acute Category: Medical Code(s): D50.9 - Iron deficiency anemia, unspecified (13) MRSA (methicillin resistant staphylococcus aureus) pneumonia Current visit: Yes Status: Acute Category: Medical Code(s): J15.212 - Pneumonia due to Methicillin resistant Staphylococcus aureus (14) Atrial fibrillation with RVR Current visit: Yes Status: Acute Category: Medical Code(s): I48.91 - Unspecified atrial fibrillation - Assessment and plan all Dx Assessment and Plan for all problems:: 1. Atrial fibrillation with rapid ventricular response, reportedly new and likely due to current pulmonary distress. Overall, pt appears to be net positive of 13 liters of fluid this admission, will repeat lasix this AM but give IV and hold IVF for now despite CKD stage 4 on labs. Pt likely requires the increased heart rate due to current sepsis/illness . Echo shows preserved LVEF and questionable endocardities vs just calcified mitral valve. Will try IV cardizem to slow heart rate. CHADS-VASC score of 7 with 9.6% CVA risk annually. High risk for GI bleed and recurrent anemia/need for transfusion, therefore would not recommend anticoagulation. 2. Sepsis/bilat pneumonia/MRSA infection/UTI, on multiple antibiotics with recurrent elevated temps and concern for endocarditis. Poor prognosis. 3. DNR
--- NOTE | 2019-08-08 10:36 | Pharmacy Consult Notes ---
- Pharmacy Consult Date: 08/08/19 Time: 10:30 Referring provider: DR. MONTERO Reason for Consult:: VANCOMYCIN LEVEL Allergies and ADEs:: Allergies Allergy/AdvReac Type Severity Reaction Status Date / Time No Known Allergies Allergy Verified 08/03/19 11:08 Home Medications:: Home Medications Medication Instructions Recorded Confirmed Type Acetaminophen [Acetaminophen 325mg 650 mg PO Q8HP PRN 08/03/19 08/03/19 History tab] Alendronate Sodium [Fosamax 70mg 70 mg PO WEEKLY 08/03/19 08/03/19 History Tablet] Atorvastatin Calcium [Lipitor 20mg 20 mg PO DAILY 08/03/19 08/03/19 History Tablet] Clopidogrel Bisulfate [Plavix 75mg 75 mg PO DAILY 08/03/19 08/03/19 History Tab] Erythromycin Base [Erythromycin 0 gm OP HS 08/03/19 08/03/19 History 1gm opth ointment] Erythromycin Base [Erythromycin 1 applicatio TP HS 08/03/19 08/03/19 History 3.5gm opth oinment] Furosemide [Lasix 80mg tab] 80 mg PO DAILY 08/03/19 08/03/19 History Levothyroxine Sodium [Synthroid 50 mcg PO DAILY 08/03/19 08/03/19 History 50mcg (0.05mg) tab] Multivitamin [Multi-Day Vitamins] 1 each PO DAILY 08/03/19 08/03/19 History Multivitamin [Multivitamins] 1 each PO DAILY 08/03/19 08/03/19 History Polymyxin B Sulf/Trimethoprim 0 ml OP TID 08/03/19 08/03/19 History [Polytrim Ophth Soln 10mL Bottle] Polymyxin B Sulf/Trimethoprim 1 drp EYE-BOTH TID 08/03/19 08/03/19 History [Polytrim Ophth Soln 10mL Bottle] Pregabalin 100 mg PO DAILY 08/03/19 08/03/19 History Triamcinolone Acetonide [Kenalog 0 gm TOPICAL BID 08/03/19 08/03/19 History 0.1% cream 30gm tube] Triamcinolone Acetonide [Kenalog 1 applicatio TP BID 02/02/20 02/02/20 History 0.1% cream 30gm tube] Height: 1.65 m Weight: 81.46 kg Laboratory Results:: Laboratory Results - last 24 hr 08/07/19 16:50: Urine Color Yellow, Urine Appearance Clear, Urine pH 5.5, Ur Specific [place] 1.025, Urine Protein 1+, Urine Glucose (UA) Negative, Urine Ketones Negative, Urine Blood 1+, Urine Nitrate Negative, Urine Bilirubin Negative, Urine Urobilinogen 0.2, Ur Leukocyte Esterase Negative, Urine RBC Occasional, Urine WBC 3-5, Ur Squamous Epith Cells 5-10, Urine Bacteria Trace 08/08/19 05:57: POC Glucose 101 08/08/19 05:59: WBC 6.4, RBC 3.60 L, Hgb 9.5 L, Hct 31.3 L, MCV 87.1, MCH 26.3 L , MCHC 30.2 L, RDW 15.5, Plt Count 251, MPV 8.3, Neut % (Auto) 65.2, Lymph % (Auto) 25.0, [place] % (Auto) 7.5, Eos % (Auto) 1.3, Baso % (Auto) 1.1, Neut # (Auto) 4.2, Lymph # (Auto) 1.6, [place] # (Auto) 0.5, Eos # (Auto) 0.1, Baso # (Auto) 0.1 08/08/19 05:59: Sodium 131 L, Potassium 4.5, Chloride 99, Carbon Dioxide 23, Anion Gap 13.5, BUN 45 H, Creatinine 2.03 H, Estimated Creat Clear 26, Estimated GFR 23 L, Est GFR ( Amer) 28 L, Glucose 101, Calcium 8.4 L 08/08/19 05:59: Troponin I 0.08 H 08/08/19 09:10: Vancomycin Trough 6.8 L Medical History: Denies:: Cancer, Diabetes Mellitus Type 1, Diabetes Mellitus Type 2, Internal Pacemaker, MRSA Assessment and Plan (1) Sepsis Current visit: Yes Status: Acute Qualifiers: Sepsis type: sepsis due to unspecified organism Sepsis acute organ dysfunction status: unspecified Qualified Code(s): A41.9 - Sepsis, unspecified organism Category: Medical Code(s): A41.9 - Sepsis, unspecified organism (2) Healthcare associated bacterial pneumonia Current visit: Yes Status: Acute Category: Medical Code(s): J15.9 - Unspecified bacterial pneumonia (3) Acute kidney injury (nontraumatic) Current visit: Yes Status: Acute Category: Medical Code(s): N17.9 - Acute kidney failure, unspecified (4) SIRS (systemic inflammatory response syndrome) Current visit: Yes Status: Acute Category: Medical Code(s): R65.10 - Systemic inflammatory response syndrome (SIRS) of non-infectious origin without acute organ dysfunction (5) Stage II pressure ulcer of buttock Current visit: Yes Status: Acute Qualifiers: Laterality: left Qualified Code(s): L89.322 - Pressure ulcer of left buttock, stage 2 Category: Medical Code(s): L89.302 - Pressure ulcer of unspecified buttock, stage 2 (6) Diastolic heart failure Current visit: Yes Status: Acute Qualifiers: Heart failure chronicity: chronic Qualified Code(s): I50.32 - Chronic diastolic (congestive) heart failure Category: Medical Code(s): I50.30 - Unspecified diastolic (congestive) heart failure (7) Neuropathy Current visit: Yes Status: Acute Category: Medical Code(s): G62.9 - Polyneuropathy, unspecified (8) Amputation, traumatic, toes Current visit: Yes Status: Acute Qualifiers: Laterality: left Category: Medical Code(s): S98.139A - Complete traumatic amputation of one unspecified lesser toe, initial encounter (9) CKD (chronic kidney disease) Current visit: Yes Status: Acute Qualifiers: Chronic kidney disease stage: stage 4 (severe) Qualified Code(s): N18.4 - Chronic kidney disease, stage 4 (severe) Category: Medical Code(s): N18.9 - Chronic kidney disease, unspecified (10) Acute lower UTI (urinary tract infection) Current visit: Yes Status: Acute Category: Medical Code(s): N39.0 - Urinary tract infection, site not specified (11) E-coli UTI Current visit: Yes Status: Acute Category: Medical Code(s): N39.0 - Urinary tract infection, site not specified; B96.20 - Unspecified Escherichia coli [E. coli] as the cause of diseases classified elsewhere (12) Anemia, iron deficiency Current visit: Yes Status: Acute Category: Medical Code(s): D50.9 - Iron deficiency anemia, unspecified (13) MRSA (methicillin resistant staphylococcus aureus) pneumonia Current visit: Yes Status: Acute Category: Medical Code(s): J15.212 - Pneumonia due to Methicillin resistant Staphylococcus aureus (14) Atrial fibrillation with RVR Current visit: Yes Status: Acute Category: Medical Code(s): I48.91 - Unspecified atrial fibrillation - Assessment and plan all Dx Assessment and Plan for all problems:: PATIENT'S VANCOMYCIN TROUGH LEVEL WAS 6.8 MCG/ML AFTER HER FIRST DOSE. RECOMMEND CONTINUING WITH CURRENT DOSE AND INTERVAL AT THIS AND WILL OBTAIN TROUGH LEVEL PRIOR TO HER NEXT DOSE. MONITORING CLOSELY DUE TO POOR RENAL FUNCTION. PHARMACY WILL FOLLOW DAILY AND ADJUST APPROPRIATE.
[2019-08-08 10:41] LABS: ABG Base Excess -10.6 mmol/L (-2.4-2.3); ABG HCO3 16.9 mmhg (22.0-26.0); ABG Oxygen Saturation 98 % (90-100); ABG PCO2 41.3 mmhg (35.0-45.0); ABG PH 7.23 mmol/L (7.35-7.45); ABG TCO2 18.2 mmhg (23-27); Oxygen 3LPM %
--- NOTE | 2019-08-08 11:03 | Cardiology Report ---
APPROVED REPORT EXAM: Comprehensive 2D, Doppler, and color-flow Echocardiogram Premium Cancellation Clerk: Briana Moreno RDCS Ht: 5 ft 4 in Wt: 179lbs BSA: 1.87 BP: 155/66 mmHg Indications: Abnormal ECG, Congestive Heart Failure, Shortness of Breath, Atrial Fibrillation (new onset?),Sepsis,Pneumonia 2D Dimensions LVOT 1.93 cm (M/F) 1.5-2.5 M-Mode Dimensions RVDd 2.78 cm (0.9-2.6)LVDd 4.16 cm (3.5-5.7) LVDs 3.39 cm (3.5-5.7)IVSd 1.51 cm (0.6-1.1) PWd 1.21 cm (0.6-1.1)EF (Teich) 38.70% FS 18.50% EDV (Teich) 76.80 mL ESV (Teich) 47.10 mL Aortic Valve LVOT Max 98.00 (70-110 cm/s)LVOT VTI 13.11 cm Left Ventricle Left atrium is mildly enlarged, left ventricle is normal size, mild concentric left ventricular hypertrophy, visually estimated ejection fraction 55%, there is abnormal septal motion, diastolic parameters are inconclusive. Right Ventricle Right atrium and right ventricular mildly enlarged with normal contractility. Aortic Valve Aortic valve is thickened and calcified, the aortic outflow velocities within normal range excluding the presence of any significant aortic stenosis, there is mild aortic insufficiency. Mitral Valve Mitral valve has mitral annular calcification which extends both anterior posterior mitral leaflet, there is no mitral stenosis, there is mild mitral regurgitation. Tricuspid Valve Tricuspid valve leaflets are minimally thickened, there is mild tricuspid regurgitation, calculated right ventricular systolic pressure is 59 mmHg. Pulmonic Valve Pulmonic valve is poorly visualized. Great Vessels Aortic root is normal size. Pericardium No significant pericardial effusion noted. Conclusion 1. Biatrial alignment, normal left ventricular size, mild concentric left ventricular hypertrophy, visually estimated ejection fraction of 55% with no regional wall motion abnormality, there is abnormal septal motion. Diastolic parameters are inconclusive. 2. Mildly enlarged right ventricle with normal contractility. 3. Thickened and calcified aortic valve without Doppler evidence of aortic stenosis, there is mild aortic insufficiency. 4. Mild mitral and tricuspid regurgitation, calculated right ventricular systolic pressure is 59 mmHg. 5. No significant pericardial effusion noted. Electronically signed by : Moody Trimble, 08/08/2019 11:03:43
--- NOTE | 2019-08-09 11:50 | Electrocardiograph Report ---
APPROVED REPORT Exam: Resting ECG HR:144 bpm ECG Measurements Heart Rate 144 AXES QRSd 90 QRS -17 QT 298 T76 QTc 461 <Conclusion> Atrial fibrillation with rapid ventricular response Abnormal ECG Electronically signed by : Kenroy Sheth, 08/09/2019 11:50:17
== END 2019-08-10 11:00 | disposition expired | DRG 178 ==
LOC: ER 11:02 → 2ND 11:02 → OBSVTOIN 14:16 → 2ND 14:17
PROVIDERS: ADMIT Emergency Medicine; ATTEND Emergency Medicine
CPT/HCPCS: 36415; 70371; 71010; 71045; 71250; 80048; 80053; 80202; 81001; 82803; 82962; 83605; 83735; 83880; 84484; 85007; 85014; 85018; 85025; 86078; 86850; 87040; 87070; 87077; 87086; 87088; 87186; 87205; 87275; 87276; 92610; 92611; 93005; 93306; 94640; 94761; 96365; 96367; 99285; J0692; J1956; J2543; J3370; P9016; S0077